=== PATIENT | female | born 1995 | race Caucasian/White ===

== ENCOUNTER 2018-01-04 13:34 | Emergency (ER) | payer OTHER, SELFPAY ==
[2018-01-04 13:36] VITALS: BP 140/93; PULSE 120; RESP 18; TEMP 36.9; O2SAT 98; BMI 33.0
--- NOTE | 2018-01-04 13:50 | ED.ALLEREA ---
HPI - Allergic Reaction General Chief complaint: Allergic Reaction Stated complaint: STUNG BY BEE, ALLERGIC REACTION Time Seen by Provider: 01/04/18 13:50 Source: patient and family (father) Mode of arrival: ambulatory Limitations: no limitations History of Present Illness HPI narrative: This is a a 22-year-old female comes to the emergency department with complaint of itching, hives after having a bee sting about an hour prior to arrival. Patient has not had any shortness of breath or difficulty with breathing. She has not had nausea vomiting or diarrhea. She isn't having any swelling of her lips or oropharynx. She does feel very itchy and does have hives all over. She states she has never had symptoms like this before. Her last the sting was when she was young child. She denies any other past medical or surgical history. She denies any antibiotic allergies. She does not smoke, she drinks occasionally, no illicit. She is accompanied by her father. MD complaint: allergic reaction Related Data Previous Rx's Medication Instructions Recorded epinephrine [EpiPen 2-Harsh] 0.3 mg IM Q10M PRN #2 each 01/04/18 prednisone 50 mg PO DAILY #3 tab 01/04/18 Allergies Allergy/AdvReac Type Severity Reaction Status Date / Time No Known Drug Allergies Allergy Unverified 01/04/18 13:38 Review of Systems Review of Systems All systems reviewed & are unremarkable except as noted in HPI and below Constitutional Denies fatigue ENT Ears, Nose, Mouth, and Throat: Denies change in voice, Denies hoarseness, Denies lip swelling, Denies throat swelling and Denies tongue swelling Cardiovascular Reports rapid heart rate, Denies dyspnea and Denies dyspnea on exertion Respiratory Denies cough, Denies dyspnea, Denies dyspnea on exertion and Denies wheezing Gastrointestinal Gastrointestinal: Denies abdominal pain, Denies change in bowel habits, Denies diarrhea, Denies nausea and Denies vomiting Integumentary/Breasts Reports rash Comments: hives Endocrine Denies fatigue Allergic/Immunologic Denies lip swelling, Denies throat swelling, Denies tongue swelling and Denies wheezing PFSH Social History Smoking Status: Never smoker alcohol intake: current Exam Initial Vital Signs Initial Vital Signs: Vital Signs Temperature 98.5 F 01/04/18 13:36 Pulse Rate 120 H 01/04/18 13:36 Respiratory Rate 18 01/04/18 13:36 Blood Pressure 140/93 H 01/04/18 13:36 Pulse Oximetry 98 01/04/18 13:36 HENIL Head: normocephalic, atraumatic and other (Patient has redness Um and slightly raised hives on the face. No swelling of the lips, oropharynx.) Ears: external ears normal and TM's normal bilaterally Nose: external nose normal and No nasal discharge Face and sinus: sinuses nontender, face symmetric, no sinus tenderness and No dry mucous membranes Mouth: oral mucosae normal and moist mucous membranes Teeth and gingiva: dentition normal Throat: tonsils normal and uvula midline Resp Effort & Inspection: normal respiratory effort, able to speak in complete sentences, no respiratory distress and no use of accessory muscles Auscultation: clear to auscultation bilaterally, no rales, no rhonchi and no wheezes Cardio Rate: regular rate Rhythm: regular rhythm Heart Sounds: no click, no gallops, no murmurs and no rubs Pulses: normal peripheral pulses GI Inspection: non-distended Palpation: soft, no hepatosplenomegaly, No guarding, No pulsatile mass and No tender Auscultation: normal bowel sounds Skin Rashes: rashes noted Neuro General: alert, oriented x3, gait normal and no focal motor deficits Speech: speech normal Course Orders Ordered: Discontinued Medications Diphenhydramine HCl (Benadryl) 50 mg IV NOW ONE Stop: 01/04/18 13:51 Last Admin: 01/04/18 14:07 Dose: 50 mg Famotidine (Pepcid) 20 mg in 50 mls @ 200 mls/hr IV NOW ONE Stop: 01/04/18 14:04 Last Infusion: 01/04/18 14:22 Dose: 0 mls/hr Admin: 01/04/18 14:07 Dose: 200 mls/hr Sodium Chloride (Normal Saline 0.9%) 1,000 mls @ 1,000 mls/hr IV BOLUS ONE Stop: 01/04/18 14:50 Last Infusion: 01/04/18 15:44 Dose: 0 mls/hr Admin: 01/04/18 14:08 Dose: 1,000 mls/hr Methylprednisolone (Solu-Medrol 125 Mg Vial) 125 mg IV NOW ONE Stop: 01/04/18 13:51 Last Admin: 01/04/18 14:08 Dose: 125 mg Reevaluation(s) Reevaluation #1: Recheck after Solu-Medrol and Benadryl as well as fluids patient is feeling much better. She has not received a full L of fluids she still has some hives present but they have improved she is not having any airway involvement, no difficulty with breathing or other issues. Discussed plan for prednisone she can take Benadryl [id number]. We will give her an EpiPen with verbal directions as well as Um prescription so that in case she has another event if she has any sort of other anaphylactic changes she can use the EpiPen. I dad and sister both at bedside and aware of the plan as well. Vital Signs - 8 hr 01/04/18 13:36 01/04/18 14:43 Temperature 98.5 F Pulse Rate 120 H 88 Respiratory Rate 18 Blood Pressure 140/93 H Blood Pressure [Right Arm] 122/85 Pulse Oximetry 98 98 Discharge Plan Departure Patient Disposition: Home Clinical Impression: Allergic reaction, Full body hives Discharge Date/Time: 01/04/18 15:45 Interventions: ED Discharge Assessment Last Done: 01/04/18 15:45 Instructions: DI for General Allergic Reactions Activity Restrictions/Additional Instructions: Return to the emergency department if you have swelling of her lips, mouth, airway, if you feel like you are short of breath or have tightness in her chest. If you are having any recurrence of your hives. You may take 1-2 tablets of Benadryl [id number] every 6-8 hours as needed for itching or hives. Take prednisone until it is completely gone. Carry EpiPen and use this if you're having and anaphylactic allergic reaction or symptoms include swelling of your airway for difficulty breathing after bee sting. Prescriptions: New prednisone 50 mg tablet 50 mg PO DAILY Qty: 3 RF: 0 epinephrine [EpiPen 2-Harsh] 0.3 mg/0.3 mL auto-injector 0.3 mg IM Q10M PRN (Reason: anaphylaxis) Qty: 2 RF: 0
[2018-01-04] MEDS: diphenhydrAMINE 50 MG/ML VIAL IV (14:07)
[2018-01-04] MEDS: FAMOTIDINE 20 MG/50 ML PIGGYBACK 200 MG IV (14:07)
[2018-01-04] MEDS: methylPREDNISolone 125 MG/2 ML VIAL IV (14:08)
[2018-01-04] MEDS: SODIUM CHLORIDE 0.9% 1,000 ML 1000 ML IV (14:08)
[2018-01-04 14:43] VITALS: BP 122/85; PULSE 88; O2SAT 98
== END 2018-01-04 15:45 | disposition home or self-care (01) ==
PROVIDERS: Emergency Provider Emergency Medicine
DX: T63.441A Toxic effect of venom of bees, accidental (unintentional), initial encounter (principal); L50.9 Urticaria, unspecified
CPT/HCPCS: 96361; 96374; 96375; 99283; 99284; J1200; J2930

== ENCOUNTER 2018-01-05 22:22 | Emergency (ER) | payer OTHER, SELFPAY ==
[2018-01-05 22:30] VITALS: BP 157/83; PULSE 112; RESP 15; TEMP 37.1; O2SAT 100
[2018-01-05 22:32] VITALS: BP 150/83; PULSE 112; RESP 15; TEMP 37.1; O2SAT 100; BMI 32.1
--- NOTE | 2018-01-05 22:49 | ED.ALLEREA ---
HPI - Allergic Reaction General Chief complaint: Allergic Reaction Stated complaint: BREAKING OUT IN HIVES Time Seen by Provider: 01/05/18 22:49 Source: patient and old records reviewed Mode of arrival: ambulatory Limitations: no limitations History of Present Illness HPI narrative: Patient is a 22-year-old female who presents with allergic reaction to a bee sting. She was seen evaluated yesterday she had hives all over she now is continuing to have hives and itching in her right inner thigh. No difficulty breathing or shortness of breath. She has been taking prednisone and Benadryl throughout the day but continues to be itching. No fevers or chills they feel like that redness might be getting a little bit worse. Related Data Previous Rx's Medication Instructions Recorded epinephrine [EpiPen 2-Harsh] 0.3 mg IM Q10M PRN #2 each 01/04/18 prednisone 50 mg PO DAILY #3 tab 01/04/18 Allergies Allergy/AdvReac Type Severity Reaction Status Date / Time No Known Drug Allergies Allergy Unverified 01/04/18 13:38 Review of Systems Review of Systems GENERAL: Denies chills,fever HEENT: Denies throat pain RESPIRATORY: Denies dyspnea, cough, wheezing CARDIOVASCULAR: Denies chest pain, palpitations GASTROINTESTINAL: Denies nausea, vomiting MUSCULOSKELETAL: Denies extremity pain, injury SKIN: See HPI NEUROLOGIC: Denies weakness, dizziness, headache, numbness 8 point review of systems is negative except for those stated above and HPI PFSH Social History Smoking Status: Never smoker alcohol intake: current Exam Initial Vital Signs Initial Vital Signs: Vital Signs Temperature 98.7 F 01/05/18 22:30 Pulse Rate 112 H 01/05/18 22:30 Respiratory Rate 15 01/05/18 22:30 Blood Pressure 157/83 H 01/05/18 22:30 Pulse Oximetry 100 01/05/18 22:30 GENERAL: Well-appearing, well-nourished and in no acute distress. HEENT: Head atraumatic,EOMI, pupils reactive, CARDIOVASCULAR: Regular rate and rhythm without murmurs, rubs or gallops. RESPIRATORY: Breath sounds equal bilaterally, no wheezes rales or rhonchi. ABDOMEN: Soft, nontender. Normoactive bowel sounds all 4 quadrants. No guarding or rebound. EXTREMITIES: Normal range of motion, no clubbing or edema. Neurovascularly intact NEUROLOGICAL: Alert and oriented x4.Normal gait and speech. SKIN: Hives noted right inner thigh it is at least 15 cm x 12 cm central clearing no on abscess or swelling is seems to be pretty localized, no stinger identified Course Orders Ordered: Discontinued Medications Ranitidine HCl (Zantac) 150 mg PO NOW ONE Stop: 01/05/18 22:59 Last Admin: 01/05/18 23:09 Dose: 150 mg Vital Signs - 8 hr 01/05/18 22:30 01/05/18 22:32 Temperature 98.7 F 98.7 F Pulse Rate 112 H 112 H Respiratory Rate 15 15 Blood Pressure 150/83 H Blood Pressure [Left Arm] 157/83 H Pulse Oximetry 100 100 MDM - Allergic Reaction MDM Narrative Medical decision making narrative: Already taking prednisone and Benadryl. At this time I see no need for epinephrine emergently or today. Recommend continuing prednisone. Discharge Plan Departure Patient Disposition: Home Clinical Impression: Allergic reaction Discharge Date/Time: 01/05/18 23:12 Interventions: ED Discharge Assessment Last Done: 01/05/18 23:11 Instructions: DI for Insect Bites and Stings Activity Restrictions/Additional Instructions: *You have been diagnosed with a bee sting, allergic reaction *What to do: This does not appear infected time the still seems to be a localized reaction. *Continue to take medications as directed Ranitidine 150 mg twice a day to help with itching Benadryl 25-50 mg every 6 hr if needed for itching *Follow up with your primary care provider in 2-3 days *Return to ER if you should have difficulty breathing, fever, worsening redness or swelling or any new, worsening or concerning symptoms Prescriptions: No Action prednisone 50 mg tablet 50 mg PO DAILY Qty: 3 RF: 0 epinephrine [EpiPen 2-Harsh] 0.3 mg/0.3 mL auto-injector 0.3 mg IM Q10M PRN (Reason: anaphylaxis) Qty: 2 RF: 0 Referrals: [facility] [Provider Group] [facility] [Provider Group] [facility] [Provider Group]
== END 2018-01-05 23:12 | disposition home or self-care (01) ==
PROVIDERS: Emergency Provider Emergency Medicine
DX: T63.441A Toxic effect of venom of bees, accidental (unintentional), initial encounter (principal); L50.9 Urticaria, unspecified
CPT/HCPCS: 99282; 99283

== ENCOUNTER 2020-02-22 16:43 | Emergency (ER) | payer OTHER, SELFPAY ==
[2020-02-22 16:45] VITALS: BP 168/94; PULSE 135; RESP 18; TEMP 37; O2SAT 99; BMI 36.8
[2020-02-22 18:08] LABS: Add Manual Diff / Slide Review NO; Basophils Absolute Auto 0 /uL (0-100); Basophils Percent Auto 0.3 % (0-2); Eosinophils Absolute Auto 100 /uL (0-450); Eosinophils Percent Auto 0.9 % (2-4); Hemoglobin 15.3 g/dL (12.0-16.0); Lymphocytes Absolute Auto 2500 /uL (1100-4500); Lymphocytes Percent Auto 30.6 % (25-40); Mean Corpuscular HGB Conc 34.8 % (30-36); Mean Corpuscular Hemoglobin 30.1 PG (26-34); Mean Corpuscular Volume 86.7 fL (80-100); Monocytes Absolute Auto 600 /uL (0-900); Monocytes Percent Auto 7.4 % (3-14); Neutrophils Absolute Auto 5000 /uL (1500-7000); Neutrophils Percent Auto 60.8 % (50-75); Platelet Count 308 X10^3/uL (150-400); Red Blood Cell Count 5.07 X10^6/uL (4.0-5.2); Red Cell Distribution Width 12.3 % (11.6-14.8); White Blood Cell Count 8.3 X10^3/uL (4.5-11.0)
[2020-02-22 18:17] VITALS: BP 145/82; PULSE 104; RESP 16; O2SAT 97
[2020-02-22 18:19] LABS: BUN Creatinine Ratio 11.1 (6-22); Blood Urea Nitrogen 7 mg/dL (7-17); Calcium 9.3 mg/dL (8.4-10.2); Carbon Dioxide 26 mmol/L (22-32); Chloride 104 mmol/L (98-107); Estimated Glomerular Filt Rate > 60.0 mL/min (>60); Glucose 99 mg/dL (70-100); HEMOLYSIS < 15 (0-50); Potassium 3.7 mmol/L (3.4-5.1); Sodium 138 mmol/L (137-145)
[2020-02-22 18:36] LABS: HCG Quantitative /Beta subunit 5989.5 mIU/mL
--- NOTE | 2020-02-22 18:55 | DI.US.S_ITS ---
PROCEDURE: US OB <= 14 WEEKS FETUS INDICATIONS: CRAMPING OUTSIDE/PRIOR DATING DATA: Last menstrual period (LMP): 01/14/2020. LMP-based estimated date of delivery (RUBEN): 10/20/2020 . First dating scan (date and location): 02/22/2020 . Estimated date of delivery (RUBEN) from first dating scan: 10/19/2020 . TECHNIQUE: Real-time scanning was performed of the fetus and maternal pelvic organs, with image documentation. Endovaginal scanning was also performed to better visualize the fetus and maternal ovaries. COMPARISON: None. FINDINGS: Embryo: An intrauterine anechoic focus is present, containing a 2 mm diameter possible pole measuring 2 mm, corresponding to a 5 week 5 day gestation. No cardiac activity is seen. Measurement variability in dating: +/- 4 weeks by LMP, +/- 7 days by mean sac diameter (use before 6 weeks gestation if crown-rump length not able to be measured), +/- 5 days by crown-rump length (up to 8 weeks 6 days gestation), +/- 7 days by crown-rump length (up to 13 weeks 6 days gestation). Maternal organs: Ovaries demonstrate a probable left ovarian corpus luteal cyst . Limited images through the kidneys demonstrate no hydronephrosis. IMPRESSION: Findings consistent with a in early intrauterine gestation. Clinical and sonographic follow-up is recommended to document viability. Dictated by: Lizzy Moser M.D. on 02/22/2020 at 19:47 Approved by: Lizzy Moser M.D. on 02/22/2020 at 19:48
--- NOTE | 2020-02-22 19:39 | ED.PREGNANCY ---
HPI - General Chief complaint: Abdominal Pain Stated complaint: 5 WKS CRAMPING Time Seen by Provider: 02/22/20 17:35 Source: patient Mode of arrival: Ambulatory Limitations: no limitations History of Present Illness HPI Narrative: 24-year-old female nonsmoker with noncontributory medical history is a at 5 weeks with a chief complaint suprapubic cramping since yesterday. She denies any lateralization to her complaint. She denies vaginal bleeding. She denies dysuria, frequency or urgency. She has had no fever or shaking chills. MD Complaint: abdominal pain Onset (ago): day(s) Pain Consistency: constant Location: pelvis Severity: moderate Quality: Cramping Radiation: pelvis Relieving factors: none Exacerbating factors: none Associated symptoms: denies other symptoms Vaginal discharge: none Vaginal bleeding: none Patient : Yes Related Data Previous Rx's Medication Instructions Recorded epinephrine [EpiPen 2-Harsh] 0.3 mg IM Q10M PRN #2 each 01/04/18 Allergies Allergy/AdvReac Type Severity Reaction Status Date / Time No Known Drug Allergies Allergy Verified 11/22/19 10:01 Review of Systems Constitutional Constitutional: Denies chills, Denies fatigue, Denies fever(s), Denies frequent falls, Denies lethargy and Denies weakness Eyes Eyes: Denies change in vision, Denies eye discharge, Denies irritation and Denies loss of vision ENT Ears, Nose, Mouth, and Throat: Denies change in voice, Denies dizziness, Denies neck pain, Denies sore throat and Denies throat swelling Cardiovascular Cardiovascular: Denies chest pain, Denies irregular heart rhythm, Denies lightheadedness, Denies palpitations, Denies dyspnea, Denies dyspnea on exertion and Denies orthopnea Respiratory Respiratory: Denies cough, Denies dyspnea, Denies dyspnea on exertion and Denies wheezing Gastrointestinal Gastrointestinal: Denies abdominal pain, Denies change in bowel habits, Denies diarrhea, Denies nausea and Denies vomiting Musculoskeletal Musculoskeletal: Denies neck pain and Denies numbness Integumentary/Breasts Skin/Breast: Denies pruritus, Denies erythema, Denies rash and Denies wounds Neurologic Neurologic: Denies behavioral changes, Denies confusion, Denies dizziness, Denies frequent falls, Denies loss of vision, Denies numbness and Denies weakness Psychiatric Psychiatric: Denies anxiety, Denies behavioral changes, Denies confusion, Denies depression, Denies homicidal ideation and Denies suicidal ideation Endocrine Endocrine: Denies fatigue, Denies flushing and Denies palpitations Hematologic/Lymphatic Hematologic/Lymphatic: Denies easy bruising Allergic/Immunologic Allergic/Immunologic: Denies urticaria, Denies throat swelling and Denies wheezing PMFSH - Past Medical History Patient : Yes Exam Narrative Exam Narrative: GENERAL: [24] year old patient appears stated age. Well-nourished, well-developed patient, in mild distress. Tearful HEAD: Atraumatic. Normocephalic. EYES: Pupils equal round and reactive. Extraocular motions intact. No scleral icterus. No injection or drainage. ENT: Nose without bleeding, purulent drainage. Throat without erythema, tonsillar hypertrophy or exudate. Airway patent. NECK: Trachea midline. Non tender CARDIOVASCULAR: Regular rate and rhythm without murmurs, gallops, or rubs. RESPIRATORY: Clear to auscultation. Breath sounds equal bilaterally. No wheezes, rales, or rhonchi. GASTROINTESTINAL: Abdomen soft, non-tender, nondistended. EXTREMITIES: No edema or joint tenderness. BACK: Nontender without deformity or crepitance. No flank tenderness. NEURO: AOx3. SKIN: No rash or erythema of visible areas Initial Vital Signs Initial Vital Signs: Vital Signs Temperature 98.6 F 02/22/20 16:45 Pulse Rate 135 H 02/22/20 16:45 Respiratory Rate 18 02/22/20 16:45 Blood Pressure 168/94 H 02/22/20 16:45 Pulse Oximetry 99 02/22/20 16:45 Course Orders Ordered: ED Orders 02/22/20 18:02 ABO RH Type Stat Basic Metabolic Panel Stat Complete Blood Count AUTO DIFF Stat HCG Quantitative /Beta subunit Stat 02/22/20 18:55 US OB <= 14 weeks fetus Stat Vital Signs Vital signs: Vital Signs - 8 hr 02/22/20 16:45 02/22/20 18:17 Temperature 98.6 F Pulse Rate 135 H 104 H Respiratory Rate 18 16 Blood Pressure 168/94 H 145/82 H Pulse Oximetry 99 97 MDM - OB/Uterine Contractions Lab Data Result diagrams: 02/22/20 18:02 02/22/20 18:02 Labs: Lab Results 02/22/20 02/22/20 02/22/20 Range/Units 18:02 18:02 18:02 WBC 8.3 (4.5-11.0) X10^3/uL RBC 5.07 (4.0-5.2) X10^6/uL Hgb 15.3 (12.0-16.0) g/dL Hct 44.0 (36-46) % MCV 86.7 (80-100) fL MCH 30.1 (26-34) PG MCHC 34.8 (30-36) % RDW 12.3 (11.6-14.8) % Plt Count 308 (150-400) X10^3/uL Neut % (Auto) 60.8 (50-75) % Lymph % (Auto) 30.6 (25-40) % Bryan % (Auto) 7.4 (3-14) % Eos % (Auto) 0.9 L (2-4) % Baso % (Auto) 0.3 (0-2) % Neut # (Auto) 5000 (0300-4932) /uL Lymph # (Auto) 2500 (4765-0435) /uL Bryan # (Auto) 600 (0-900) /uL Eos # (Auto) 100 (0-450) /uL Baso # (Auto) 0 (0-100) /uL Sodium 138 (137-145) mmol/L Potassium 3.7 (3.4-5.1) mmol/L Chloride 104 (98-107) mmol/L Carbon Dioxide 26 (22-32) mmol/L BUN 7 (7-17) mg/dL Creatinine 0.63 (0.52-1.04) mg/dL Estimated GFR > 60.0 (>60) mL/min BUN/Creatinine Ratio 11.1 (6-22) Glucose 99 (70-100) mg/dL Calcium 9.3 (8.4-10.2) mg/dL HCG, Quant 5989.5 mIU/mL Blood Type O Positive Urine Dip Bedside Urine Glucose Negative Bedside Urine Bilirubin - Negative Bedside Urine Ketone - Negative Urine Specific [place] 1.025 Bedside Urine Occult Blood - Negative Bedside Urine pH 6 Bedside Urine Protein - Negative Bedside Urine Urobilinogen - Negative Bedside Urine Nitrite - Negative Bedside Urine Leukocytes - Negative Esterase Imaging Data US - OB: Radiologist's Impression: Chart Viewer Diagnostics DATE TYPE STATUS REF RANGE/AUTHOR Hx 02/22/20 18:55 Lizzy Moser Sherry Chung 24, F0 1995 [facility], [facility] ED 154.94cm 88.451kg BMI: 36.8kg/m? Abdominal Pain Search Chart No Data to Display ONSET 05/16/12 02/22/20 19:40 Sherry Chung 24 F 1995 [place] [address] Ultrasound Report Signed Patient: Sherry Chung LMR#: [id number] : 1995Acct:[id number] Age/Sex: 24 / FDate of Service: 02/22/20 Loc: ED Accession Number: [id number] Procedure: US OB <= 14 weeks fetus Ordering Provider: Uday Soto D.O. PROCEDURE: US OB <= 14 WEEKS FETUS INDICATIONS: CRAMPING OUTSIDE/PRIOR DATING DATA: Last menstrual period (LMP): 01/14/2020. LMP-based estimated date of delivery (RUBEN): 10/20/2020 . First dating scan (date and location): 02/22/2020 . Estimated date of delivery (RUBEN) from first dating scan: 10/19/2020 . TECHNIQUE: Real-time scanning was performed of the fetus and maternal pelvic organs, with image documentation. Endovaginal scanning was also performed to better visualize the fetus and maternal ovaries. COMPARISON: None. FINDINGS: Embryo: An intrauterine anechoic focus is present, containing a 2 mm diameter possible pole measuring 2 mm, corresponding to a 5 week 5 day gestation. No cardiac activity is seen. Measurement variability in dating: +/- 4 weeks by LMP, +/- 7 days by mean sac diameter (use before 6 weeks gestation if crown-rump length not able to be measured), +/- 5 days by crown-rump length (up to 8 weeks 6 days gestation), +/- 7 days by crown-rump length (up to 13 weeks 6 days gestation). Maternal organs: Ovaries demonstrate a probable left ovarian corpus luteal cyst . Limited images through the kidneys demonstrate no hydronephrosis. IMPRESSION: Findings consistent with a in early intrauterine gestation. Clinical and sonographic follow-up is recommended to document viability. Dictated by: Lizzy Moser M.D. on 02/22/2020 at 19:47 Approved by: Lizzy Moser M.D. on 02/22/2020 at 19:48 [facility] Narrative Medical decision making narrative: Multiple etiologies for patient's symptoms considered including: [Nonspecific pain in , implantation, ectopic, early miscarriage] Patient's symptoms improved over duration of stay with above-stated therapies. Findings and discharge diagnosis discussed with patient/family followed by verbalization of understanding Return precautions discussed with patient/family whom verbalize understanding. Discharge Plan Departure Patient Disposition: Home Clinical Impression: Pelvic pain affecting Qualifiers: Trimester: first trimester Qualified Code(s): O26.891 - Other specified related conditions, first trimester Discharge Date/Time: 02/22/20 19:41 Instructions: DI for Abdominal Pain -- Early Activity Restrictions/Additional Instructions: *You have been diagnosed with [pelvic cramping in early . Ultrasound suggests no ectopic , this is very reassuring] *What to do: *Follow up with your primary care provider in 2-3 days, call for an appointment. Let them know you were seen in the Emergency Department and that we ask that you be seen in follow up *Return to ER if you should have any new, worsening or concerning symptoms, such as [increasing pain, vaginal bleeding, fever greater than 101 or other concerning symptoms] Prescriptions: No Action epinephrine [EpiPen 2-Harsh] 0.3 mg/0.3 mL auto-injector 0.3 mg IM Q10M PRN (Reason: anaphylaxis) Qty: 2 RF: 0 Referrals: Rikki Fernández MD [Primary Care Provider] - Katherin Hoskins MD [Physician] -
[2020-02-22 19:40] VITALS: BP 142/94; PULSE 114; RESP 18; O2SAT 98
== END 2020-02-22 19:41 | disposition home or self-care (01) ==
PROVIDERS: Emergency Provider Emergency Medicine; PCP Student in an Organized Health Care Education/Training Program
DX: O26.891 Other specified pregnancy related conditions, first trimester (principal); R10.9 Unspecified abdominal pain; Z3A.01 Less than 8 weeks gestation of pregnancy
CPT/HCPCS: 36415; 76801; 76817; 80048; 81003; 84702; 85025; 86900; 86901; 99282; 99284

== ENCOUNTER → 2020-03-06 10:40 | Outpatient (CLI) | payer OTHER, SELFPAY ==
--- NOTE | 2020-03-06 | DI.US.S_ITS ---
PROCEDURE: US OB <= 14 WEEKS FETUS INDICATIONS: INITIAL SIZING AND DATING OUTSIDE/PRIOR DATING DATA: Last menstrual period (LMP): 01/14/20 . LMP-based estimated date of delivery (RUBEN): 10/20/20 . First dating scan (date and location): 02/22/20 . Estimated date of delivery (RUBEN) from first dating scan: 10/19/20 . TECHNIQUE: Real-time scanning was performed of the fetus and maternal pelvic organs, with image documentation. Endovaginal scanning was also performed to better visualize the fetus and maternal ovaries. COMPARISON: [facility], OB <= 14 WEEKS FETUS, 02/22/2020, 19:15. FINDINGS: Embryo: An intrauterine is present including a single pole with an average crown-rump length of 1.2 cm corresponding to a seven week three day plus or minus five day gestation. There is detectable cardiac activity in the fetus at a rate of 168 beats per minute. A normal yolk sac is present. Measurement variability in dating: +/- 4 weeks by LMP, +/- 7 days by mean sac diameter (use before 6 weeks gestation if crown-rump length not able to be measured), +/- 5 days by crown-rump length (up to 8 weeks 6 days gestation), +/- 7 days by crown-rump length (up to 13 weeks 6 days gestation). Maternal organs: The gravid uterus is anteverted. The cervix is closed. There is no perigestational hemorrhage. Maternal ovaries appear normal with a corpus luteum associated with the left ovary. Limited images through the kidneys demonstrate no hydronephrosis. IMPRESSION: 1. Single living intrauterine . 2. Estimated due date of 10/19/20. Dictated by: Maritza Reynolds M.D. on 03/06/2020 at 13:12 Approved by: Maritza Reynolds M.D. on 03/06/2020 at 13:17
== END ==
PROVIDERS: PCP Family Medicine; Referring Provider Family Medicine; Visit Provider Family Medicine
DX: Z34.91 Encounter for supervision of normal pregnancy, unspecified, first trimester (principal); Z3A.01 Less than 8 weeks gestation of pregnancy
CPT/HCPCS: 76801; 76830

== ENCOUNTER → 2020-05-05 12:17 | Outpatient (ROUT) | payer OTHER, SELFPAY ==
[2020-05-05 12:29] LABS: Glucose 143 mg/dL (70-100)
== END ==
PROVIDERS: PCP Family Medicine; Visit Provider Nurse Practitioner Obstetrics & Gynecology
DX: Z34.90 Encounter for supervision of normal pregnancy, unspecified, unspecified trimester (principal); Z13.1 Encounter for screening for diabetes mellitus; Z3A.16 16 weeks gestation of pregnancy
CPT/HCPCS: 82947

== ENCOUNTER → 2020-05-08 07:44 | Outpatient (CLI) | payer OTHER, MEDICAID, SELFPAY ==
[2020-05-08 08:30] LABS: Glucose Fasting Gestational 95 mg/dL (76-95)
[2020-05-08 09:56] LABS: Glucose 1 Hour Gest 160 mg/dL (76-180)
[2020-05-08 11:04] LABS: Glucose 2 Hour Gest 143 mg/dL (76-155)
[2020-05-08 11:06] LABS: Glucose Tol Interp,Gestational INTERPRETATION
[2020-05-08 12:21] LABS: Glucose 3 Hour Gest 119 mg/dL (76-140)
== END ==
PROVIDERS: PCP Family Medicine; Referring Provider Nurse Practitioner Obstetrics & Gynecology; Visit Provider Nurse Practitioner Obstetrics & Gynecology
DX: Z34.90 Encounter for supervision of normal pregnancy, unspecified, unspecified trimester (principal); Z13.1 Encounter for screening for diabetes mellitus; Z3A.16 16 weeks gestation of pregnancy
CPT/HCPCS: 36415; 82951; 82952

== ENCOUNTER → 2020-06-02 09:42 | Outpatient (CLI) | payer OTHER, MEDICAID, SELFPAY ==
--- NOTE | 2020-06-02 09:45 | DI.US.S_ITS ---
PROCEDURE: US OB >= 14 WEEKS FETUS INDICATIONS: 20 WEEK ANATOMICAL SURVEY OUTSIDE/PRIOR DATING DATA: Last menstrual period (LMP): 01/14/2020. LMP-based estimated date of delivery (RUBEN): 10/20/2020 . First dating scan (date and location): 02/22/2020 . Estimated date of delivery (RUBEN) from first dating scan: 10/29/2020 . TECHNIQUE: Real-time scanning was performed of the fetus, with image documentation and biometric measurements. Endovaginal scanning: No COMPARISON: None. FINDINGS: General: A single living intrauterine gestation is present. Presentation: Breech. Placenta: Placental position is posterior , without previa. Amniotic fluid index: 11.9 cm, normal range is 5-24 cm. heart rate: 158 beats per minute. Maternal cervical canal: 4.0 cm long. Normal lower limit is 2.5 cm. biometrics: Biparietal diameter: 19 weeks 3 days Head circumference: 20 weeks 1 day Abdominal circumference: 20 weeks 0 days Femur length: 20 weeks 0 days Estimated gestational age from initial scan: 20 weeks 1 day Composite gestational age from present scan: 19 weeks 6 days Estimated weight and percentile: 323 g, 35th percentile Measurement variability for biometric dating: +/- 7 days from 14 weeks to 15 weeks 6 days gestation, +/- 10 days from 16 weeks to 21 weeks 6 days gestation, +/- 2 weeks from 22 weeks to 27 weeks 6 days gestation, +/- 3 weeks for 28 weeks gestation or later. weight reference: 4500 g or EFW >90/95% is considered macrosomia or large for gestational age. EFW <10% is small for gestational age. EFW 5% or less is considered intra-uterine growth restriction. Anatomic survey: Neuro: Ventricles are non-dilated at less than 10 mm. Cisterna magna is normal at 3-11 mm. Cerebellum is normal in size and morphology. Nuchal skin fold: Normal at less than 6 mm between 14-21 weeks gestational age. Face: Suboptimally visualized. Spine: No evidence for spina bifida. Heart: 4-chambered heart is present, with normal ventricular outflow tracts. Diaphragm: Diaphragm is intact. Stomach: Left-sided stomach is present. Kidneys: No hydronephrosis. Normal is less than 5 mm in 2nd trimester, less than 7 mm in 3rd trimester. Cord: 3-vessel cord has orthotopic insertion. Bladder: Normal in size. Extremities: All 4 extremities identified. IMPRESSION: 1. Single living IUP redemonstrated and interval growth is normal. 2. face suboptimally visualized; otherwise normal anatomic survey. Dictated by: Christophe Pitts [facility] Interpreted: Shane Romero MD on 06/04/2020 at 15:02 Approved by: Shane Romero M.D. on 06/04/2020 at 17:35
== END ==
PROVIDERS: PCP Nurse Practitioner Obstetrics & Gynecology; Referring Provider Nurse Practitioner Obstetrics & Gynecology; Visit Provider Nurse Practitioner Obstetrics & Gynecology
DX: Z34.92 Encounter for supervision of normal pregnancy, unspecified, second trimester (principal); Z3A.20 20 weeks gestation of pregnancy
CPT/HCPCS: 76811

== ENCOUNTER → 2020-06-18 14:55 | Outpatient (CLI) | payer OTHER, MEDICAID, SELFPAY ==
--- NOTE | 2020-06-18 15:53 | DIET.PN ---
INITIAL GESTATIONAL DIABETES ASSESSMENT ASSESS:? Ms. Chung is a 25 yof referred for gestational diabetes. Pt is . She has been monitoring her blood glucose for the last month. At this time, more than 20% of her blood glucose is above recommended values. She follows a diet high in carbohydrate rich foods. She admits to be a night owl and often skipping breakfast. She lost weight during her first trimester due to food intolerances but has started gaining some weight back. ? RUBEN:?October 19, 2020 ? WKS GESTATION:?? 22 wks ?LABS: FB F: 95 1hr: 160 2hr: 143 3hr: 119 ? MEDS: n/a ? DIET:? B: bagel w/ cream cheese and fruit, Shiela energy (160mg caffeine) L: premier protein shake w/ fruit D: tacos; spaghetti; teriyaki chicken bowls Sn: fruit/ sweets ? HT:? 61in ? PRE-PREG WT:? 195lb ? PRE-PREG BMI:??? 36.8 ? CURRENT WT: 184lb ? TOTAL WT GAIN:? -11lb EXERCISE: none NUTRITION DX 1. Altered nutrition related lab values r/t gestational diabetes as evidenced by recent labs (OGGT). INTERVENTION 1. Discussed pathophysiology of gestational diabetes and impact of hormone and nutrition/diet on blood sugar control.? Discussed fed versus non-fed state.? 2. Recommended checking fasting, pre-meal and 1hr post prandial (3x/day).? Discussed goals for glycemic control (<95 FBG, <140 1-hr PP).? 3. Discussed the effect of carbohydrates/protein/fat on blood sugar control.? Stressed importance of consistent carbohydrate intake at each meal and provided instructions for recommended servings/portions of carbohydrates/protein per meal.? Provided pt with educational material. 4. Introduced carbohydrate counting and measuring carbohydrate content via servings sizes and reading nutrition labels.? Provided handouts.? Pt will need further review 5. Discussed importance of meal timing and not going >3 hours between meals.? Provided sample meal schedule for pt.? Pt agreeable.?? 6. Discussed importance a pre-danitza vitamin and including food sources of calcium, vitamin D, iron and folic acid for baby and mother?s nutrition support. 7. Discussed caffeine intake. Recommend no more than 200 mg/day (1 cup coffee). 8. Discussed rule of 15 for hypoglycemia. 9. Recommend patient purchase Urine Ketone strips and instructed on use and when to contact provider. 10. Recommended patient continue exercise as appropriate per PCP approval. Discussed 30 min /day 11. Patient may need medication management, will follow-up with plan of care at next visit after reviewing glucose results.? MONITOR/EVAL: Follow up scheduled X 1 week. Good compliance expected. Review: carb sources, carb counting, portion size, meal timing, BG log, weight.
== END ==
PROVIDERS: PCP Nurse Practitioner Obstetrics & Gynecology; Referring Provider Nurse Practitioner Obstetrics & Gynecology; Visit Provider Nurse Practitioner Obstetrics & Gynecology
DX: O24.419 Gestational diabetes mellitus in pregnancy, unspecified control (principal)
CPT/HCPCS: G0108

== ENCOUNTER → 2020-06-25 15:10 | Outpatient (CLI) | payer OTHER, MEDICAID, SELFPAY ==
--- NOTE | 2020-06-25 15:29 | DIET.PN ---
Gestational Diabetes Follow Up ? ASSESS:? Ms. Chung is here for gestational diabetes follow up. She has completely eliminated sugar and has cut down on carbohydrate portions. She has been focusing on adding more protein to meals and snacks. Glucose values have been in good control since our last visit. She continues to lose weight. Not concerned at this time as weight loss is intentional due to dietary changes and baby is growing appropriately. ? LABS: FB-93 (106 x 1) 1 hr PP:??86-118 ? Weight: 181 lb ? EXERCISE:??plans to start walking now that the weather is getting nicer. ? NUTRITION Dx? 1. Altered nutrition related labs r/t gestational diabetes aeb recent labs (OGGT). ? INTERVENTION? 1. Reviewed blood sugar log and implications/reasons for elevated/decreased blood sugar.? Pt with good understanding.? 2. Reviewed carbohydrate counting and importance of consistent carbohydrate intake.? 3. Reviewed meal intake and importance of balanced meals. 4. Discussed evening snacks ideas. Recommended avoiding milk and fruit after dinner to help with elevated FBG. 5. Recommended pt avoid processed foods as much as possible and aim to get most nutrients from refrigerated options. Suggested cutting up vegetables and making protein rich salads (chicken/egg salad) ahead of time for quick snacks. 6. Discussed possible need for increased medication management if >80% of fasting and post-prandial readings are not within recommended values (FBG<95, 1 hr PP <140). Pt agreeable. ? MONITOR/EVALUATE: Pt receptive to information provided.? Will schedule follow up in 4 weeks. Patient will call sooner if blood glucose is not in range.
== END ==
PROVIDERS: Referring Provider Nurse Practitioner Obstetrics & Gynecology; Visit Provider Nurse Practitioner Obstetrics & Gynecology
DX: O24.419 Gestational diabetes mellitus in pregnancy, unspecified control (principal)
CPT/HCPCS: G0108

== ENCOUNTER 2020-08-14 23:08 | Emergency (ER) | payer OTHER, MEDICAID, SELFPAY ==
[2020-08-14 23:15] VITALS: BP 132/93; PULSE 130; RESP 20; TEMP 37.4; O2SAT 97
[2020-08-14 23:47] VITALS: PULSE 108
--- NOTE | 2020-08-14 23:53 | ED_ITS ---
HPI - Nausea/Vomiting/Diarrhea General Chief complaint: Nausea/Vomiting/Diarrhea Stated complaint: flu like symptons, nausea bloody diarrhea Time Seen by Provider: 08/14/20 23:24 Source: patient Mode of arrival: Ambulatory Limitations: no limitations History of Present Illness HPI Narrative: Patient is a 25-year-old female who is currently 30 weeks presenting with diarrhea 3 times today and some nausea. Fever chills or sore throat. His she is noted to be quite tachycardic with heart rate in the 130s initially for has come down she states that she does have higher than normal heart rate during but I do not have documentation of how high. She overall does not feel great. She noted she had blood streaking in her diarrhea but not filling the toilet with blood MD complaint: nausea and diarrhea Related Data Home Medications Medication Instructions Recorded Confirmed metformin 500 mg tablet 500 mg PO DAILY 07/08/20 07/08/20 prenat.vits,lyric,[id number] 1 tab PO DAILY 07/08/20 07/08/20 sertraline 50 mg tablet 50 mg PO DAILY 07/08/20 07/08/20 Previous Rx's Medication Instructions Recorded epinephrine [EpiPen 2-Harsh] 0.3 mg IM Q10M PRN #2 each 01/04/18 Allergies Allergy/AdvReac Type Severity Reaction Status Date / Time bee venom protein (honey bee) Allergy Severe throat Verified 07/08/20 11:25 swelling, hives Review of Systems Review of Systems Narrative: GENERAL: Denies chills, fatigue, malaise, fever, sweats, travel HEENT: Denies sinus pain, ear pain, sore throat, difficulty swallowing, neck nicki n RESPIRATORY: Denies dyspnea, cough, wheezing, hemoptysis, sputum. CARDIOVASCULAR: Denies chest pain, palpitations, orthopnea, edema GASTROINTESTINAL: See HPI : Denies dysuria, frequency, incontinence, hematuria, urinary retention, flank pain. MUSCULOSKELETAL: Denies weakness, joint pain, or bony pain SKIN: No rash, no erythema, no pruritus NEUROLOGIC: Denies weakness, dizziness, headache, numbness, change in speech, confusion PSYCHIATRIC: No concerning psychosocial issues. 12 point review of systems is negative except for those stated above and HPI Patient History Medical History Acne rosacea, papular type (05/16/12) Anxiety Herniated disc (~2017) HSV-2 infection Surgical History History of placement of ear tubes (~1996) Family History Grandmother Diabetes mellitus Mother Bicornate uterus Social History Smoking Status: Never smoker alcohol intake: current Smoking Status: Never smoker alcohol intake frequency: 0-2 drinks per day Substance Use Type: does not use Exam Initial Vital Signs Initial Vital Signs: Vital Signs Temperature 99.3 F 08/14/20 23:15 Pulse Rate 130 H 08/14/20 23:15 Respiratory Rate 20 08/14/20 23:15 Blood Pressure 132/93 H 08/14/20 23:15 Pulse Oximetry 97 08/14/20 23:15 GENERAL: Well-appearing, well-nourished and in no acute distress. HEENT: Head atraumatic,EOMI, pupils reactive, face symmetric CARDIOVASCULAR: Regular rate and rhythm without murmurs, rubs or gallops. RESPIRATORY: Breath sounds equal bilaterally, no wheezes rales or rhonchi. ABDOMEN: Soft, gravid nontender EXTREMITIES: Normal range of motion, no clubbing or edema. Neurovascularly intact NEUROLOGICAL: Alert and oriented x4.Normal gait and speech. Cranial nerves II through XII grossly intact. SKIN: Warm, dry, no laceration, no petechiae, no rashes or lesions. Course Orders Ordered: ED Orders 08/14/20 23:15 COVID19 - ADMIT (HOSPITAL ACCOUNT MANAGER swab/PCR) Stat Influenza A & B (PCR) Stat 08/14/20 23:59 Complete Blood Count AUTO DIFF Stat Comprehensive Metabolic Panel Stat Lipase Stat Discontinued Medications Sodium Chloride (Normal Saline 0.9%) 1,000 mls @ 1,000 mls/hr IV BOLUS ONE Stop: 08/15/20 00:49 Last Admin: 08/15/20 00:15 Dose: 1,000 mls/hr Documented by: DARLING Vital Signs Vital signs: Vital Signs - 8 hr 08/14/20 23:15 08/14/20 23:47 04/30/21 00:25 Temperature 99.3 F Pulse Rate 130 H 108 H 93 H Respiratory Rate 20 17 Blood Pressure 132/93 H Pulse Oximetry 97 99 MDM - Nausea/Vomiting/Diarrhea Lab Data Attestation: I reviewed the patient's lab results. Result diagrams: 08/14/20 23:59 08/14/20 23:59 Labs: Lab Results 08/14/20 08/14/20 08/14/20 Range/Units 23:15 23:15 23:59 WBC 9.0 (4.5-11.0) X10^3/uL RBC 4.19 (4.0-5.2) X10^6/uL Hgb 12.4 (12.0-16.0) g/dL Hct 36.1 (36-46) % MCV 86.4 (80-100) fL MCH 29.6 (26-34) PG MCHC 34.3 (30-36) % RDW 12.3 (11.6-14.8) % Plt Count 179 (150-400) X10^3/uL Neut % (Auto) 75.3 H (50-75) % Lymph % (Auto) 13.8 L (25-40) % [place] % (Auto) 10.1 (3-14) % Eos % (Auto) 0.2 L (2-4) % Baso % (Auto) 0.6 (0-2) % Neut # (Auto) 6800 (4727-6125) /uL Lymph # (Auto) 1300 (5995-3804) /uL [place] # (Auto) 900 (0-900) /uL Eos # (Auto) 0 (0-450) /uL Baso # (Auto) 100 (0-100) /uL Sodium (137-145) mmol/L Potassium (3.4-5.1) mmol/L Chloride (98-107) mmol/L Carbon Dioxide (22-32) mmol/L BUN (7-17) mg/dL Creatinine (0.52-1.04) mg/dL Estimated GFR (>60) mL/min BUN/Creatinine Ratio (6-22) Glucose (70-100) mg/dL Calcium (8.4-10.2) mg/dL Total Bilirubin (0.2-1.3) mg/dL AST (14-36) IU/L ALT (<35) IU/L Alkaline Phosphatase (38-126) U/L Total Protein (6.3-8.2) g/dL Albumin (3.5-5.0) g/dL Globulin (1.7-4.1) g/dL Albumin/Globulin Ratio (1.0-2.8) Lipase (23-300) U/L SARS-CoV-2 (PCR) Negative (Negative) Influenza A (RT-PCR) Flu a negative (NEGATIVE) Influenza B (RT-PCR) Flu b negative (NEGATIVE) 08/14/20 Range/Units 23:59 WBC (4.5-11.0) X10^3/uL RBC (4.0-5.2) X10^6/uL Hgb (12.0-16.0) g/dL Hct (36-46) % MCV (80-100) fL MCH (26-34) PG MCHC (30-36) % RDW (11.6-14.8) % Plt Count (150-400) X10^3/uL Neut % (Auto) (50-75) % Lymph % (Auto) (25-40) % [place] % (Auto) (3-14) % Eos % (Auto) (2-4) % Baso % (Auto) (0-2) % Neut # (Auto) (7116-7034) /uL Lymph # (Auto) (4098-6777) /uL [place] # (Auto) (0-900) /uL Eos # (Auto) (0-450) /uL Baso # (Auto) (0-100) /uL Sodium 133 L (137-145) mmol/L Potassium 3.4 (3.4-5.1) mmol/L Chloride 106 (98-107) mmol/L Carbon Dioxide 21 L (22-32) mmol/L BUN 5 L (7-17) mg/dL Creatinine 0.45 L (0.52-1.04) mg/dL Estimated GFR > 60.0 (>60) mL/min BUN/Creatinine Ratio 11.1 (6-22) Glucose 123 H (70-100) mg/dL Calcium 8.5 (8.4-10.2) mg/dL Total Bilirubin 0.3 (0.2-1.3) mg/dL AST 19 (14-36) IU/L ALT 13 (<35) IU/L Alkaline Phosphatase 88 (38-126) U/L Total Protein 6.2 L (6.3-8.2) g/dL Albumin 3.2 L (3.5-5.0) g/dL Globulin 3.0 (1.7-4.1) g/dL Albumin/Globulin Ratio 1.1 (1.0-2.8) Lipase 66 (23-300) U/L SARS-CoV-2 (PCR) (Negative) Influenza A (RT-PCR) (NEGATIVE) Influenza B (RT-PCR) (NEGATIVE) Urine Dip Bedside Urine Glucose Negative Bedside Urine Ketone - Negative Bedside Urine Occult Blood - Negative Bedside Urine Protein - Negative Bedside Urine Urobilinogen - Negative Bedside Urine Nitrite - Negative Bedside Urine Leukocytes - Negative Esterase MDM Narrative Medical decision making narrative: Patient's heart rate improved significantly with 1 L of IV fluid urine is negative. heart tones done by myself and are 150-152. At this time she has home anti nausea medication does need any more. Discussed oral rehydration technique and when to return to the ED. Discharge Plan Departure Patient Disposition: Home Clinical Impression: Gastroenteritis Instructions: DI for Viral Gastroenteritis -- Adult Activity Restrictions/Additional Instructions: 1) You have been diagnosed with viral gastroenteritis 2) What to do: Drink frequent but small amounts of fluids. I recommend Gatorade or a Gatorade-like product, as it has small amounts of sugar and salts that improve fluid retention. 3) Take medications as directed 4) Follow up with your primary care provider in 2-3 days, follow-up with OB as needed 5) Return to ER if you should have any new or worsening symptoms such as, unable to hold down fluids despite use of anti-nausea medications and the small volume oral rehydration strategy. Prescriptions: No Action metformin 500 mg tablet 500 mg PO DAILY RF: 0 sertraline 50 mg tablet 50 mg PO DAILY RF: 0 prenat.vits,lyric,[id number] Tablet 1 tab PO DAILY RF: 0 epinephrine [EpiPen 2-Harsh] 0.3 mg/0.3 mL auto-injector 0.3 mg IM Q10M PRN (Reason: anaphylaxis) Qty: 2 RF: 0 Referrals: Miscellaneous,Doctor, MD [Primary Care Provider] -
[2020-08-15 00:02] LABS: COVID19 - ADMIT (NP swab/PCR) Negative (Negative)
[2020-08-15 00:03] LABS: Influenza A - CEPHEID Flu A NEGATIVE (NEGATIVE); Influenza B - CEPHEID Flu B NEGATIVE (NEGATIVE)
[2020-08-15 00:12] LABS: Add Manual Diff / Slide Review NO; Basophils Absolute Auto 100 /uL (0-100); Basophils Percent Auto 0.6 % (0-2); Eosinophils Absolute Auto 0 /uL (0-450); Eosinophils Percent Auto 0.2 % (2-4); Hematocrit 36.1 % (36-46); Hemoglobin 12.4 g/dL (12.0-16.0); Lymphocytes Absolute Auto 1300 /uL (1100-4500); Lymphocytes Percent Auto 13.8 % (25-40); Mean Corpuscular HGB Conc 34.3 % (30-36); Mean Corpuscular Hemoglobin 29.6 PG (26-34); Mean Corpuscular Volume 86.4 fL (80-100); Monocytes Absolute Auto 900 /uL (0-900); Monocytes Percent Auto 10.1 % (3-14); Neutrophils Absolute Auto 6800 /uL (1500-7000); Neutrophils Percent Auto 75.3 % (50-75); Platelet Count 179 X10^3/uL (150-400); Red Blood Cell Count 4.19 X10^6/uL (4.0-5.2); Red Cell Distribution Width 12.3 % (11.6-14.8)
[2020-08-15] MEDS: SODIUM CHLORIDE 0.9% 1,000 ML 1000 ML IV (00:15)
[2020-08-15 00:22] LABS: Alanine Aminotransferase 13 IU/L (<35); Albumin 3.2 g/dL (3.5-5.0); Albumin Globulin Ratio 1.1 (1.0-2.8); Alkaline Phosphatase 88 U/L (38-126); Aspartate Aminotransferase 19 IU/L (14-36); BUN Creatinine Ratio 11.1 (6-22); Bilirubin Total 0.3 mg/dL (0.2-1.3); Blood Urea Nitrogen 5 mg/dL (7-17); Calcium 8.5 mg/dL (8.4-10.2); Carbon Dioxide 21 mmol/L (22-32); Chloride 106 mmol/L (98-107); Estimated Glomerular Filt Rate > 60.0 mL/min (>60); Glucose 123 mg/dL (70-100); HEMOLYSIS < 15 (0-50); Lipase 66 U/L (23-300); Potassium 3.4 mmol/L (3.4-5.1); Sodium 133 mmol/L (137-145); Total Protein 6.2 g/dL (6.3-8.2)
[2020-08-15 00:24] VITALS: PULSE 96; O2SAT 95
[2020-08-15 00:25] VITALS: PULSE 93; RESP 17; O2SAT 99
[2020-08-15 00:30] VITALS: PULSE 93; O2SAT 95
[2020-08-15 01:00] VITALS: O2SAT 99
[2020-08-15 01:32] VITALS: O2SAT 97
[2020-08-15 01:33] VITALS: BP 110/71; PULSE 99; O2SAT 97
--- NOTE | 2020-09-26 15:51 | PC.NURSE ---
Late ENtry: RN CESAR'd IV fluids at 0130 prior to discharge.
== END 2020-08-15 01:42 | disposition home or self-care (01) ==
PROVIDERS: Emergency Provider Emergency Medicine
DX: K52.9 Noninfective gastroenteritis and colitis, unspecified (principal); Z20.822 Contact with and (suspected) exposure to COVID-19
CPT/HCPCS: 36415; 80053; 81003; 83690; 85025; 87502; 87635; 96360; 99284; C9803

== ENCOUNTER → 2020-09-22 07:11 | Outpatient (CLI) | payer OTHER, MEDICAID, SELFPAY ==
--- NOTE | 2020-09-22 | DI.US.S_ITS ---
PROCEDURE: US OB LIMITED INDICATIONS: EFW; GESTATIONAL DIABETES OUTSIDE/PRIOR DATING DATA: Last menstrual period (LMP): 01/14/2020.. LMP-based estimated date of delivery (RUBEN): 10/20/2020. First dating scan (date and location): 02/22/2020. Estimated date of delivery (RUBEN) from first dating scan: 10/19/2020. TECHNIQUE: Real-time scanning was performed of the fetus, with image documentation and biometric measurements. Endovaginal scanning: Not indicated. COMPARISON: [facility], OB <= 14 WEEKS FETUS, 03/06/2020, 10:48. [facility], OB >= 14 WEEKS FETUS, 06/02/2020, 9:51. FINDINGS: General: A single living intrauterine gestation is present. Presentation: Vertex. Placenta: Placental position is left posterior, without previa. Amniotic fluid index: 20.7 cm, normal range is 5-24 cm. heart rate: 158 beats per minute. Maternal cervical canal: Not well seen . biometrics: Biparietal diameter: 8.7 cm, 35 weeks, 1 day Head circumference: 32.0 cm, 36 weeks, 0 day Abdominal circumference: 31.4 cm, 35 weeks, 3 days Femur length: 6.9 cm, 35 weeks, 3 days. Estimated gestational age from initial scan: 36 weeks, 1 day. Composite gestational age from present scan: 35 weeks, 4 days Estimated weight and percentile: 2673 grams, 32 percent. Measurement variability for biometric dating: +/- 7 days from 14 weeks to 15 weeks 6 days gestation, +/- 10 days from 16 weeks to 21 weeks 6 days gestation, +/- 2 weeks from 22 weeks to 27 weeks 6 days gestation, +/- 3 weeks for 28 weeks gestation or later. weight reference: 4500 g or EFW >90/95% is considered macrosomia or large for gestational age. EFW <10% is small for gestational age. EFW 5% or less is considered intra-uterine growth restriction. Other: Umbilical cord artery S/D ratio measures 3.5, 2.3 and 2.0. IMPRESSION: 1. Single live intrauterine with fetus in vertex presentation. heart rate is 158 beats per minute. 2. Estimated weight is at 32 percent. Normal amount of amniotic fluid. 3. Normal umbilical cord artery S/D ratio. Dictated by: Lc Faustin M.D. on 09/22/2020 at 8:54 Approved by: Lc Faustin M.D. on 09/22/2020 at 8:57
== END ==
PROVIDERS: Referring Provider Nurse Practitioner Obstetrics & Gynecology; Visit Provider Nurse Practitioner Obstetrics & Gynecology
DX: O09.93 Supervision of high risk pregnancy, unspecified, third trimester (principal); O24.415 Gestational diabetes mellitus in pregnancy, controlled by oral hypoglycemic drugs; Z36.85 Encounter for antenatal screening for Streptococcus B; Z3A.36 36 weeks gestation of pregnancy
CPT/HCPCS: 76815; 87081

== ENCOUNTER → 2020-09-22 11:49 | Outpatient (ROUT) | payer OTHER, MEDICAID, SELFPAY | PROVIDERS: Visit Provider Nurse Practitioner Obstetrics & Gynecology | DX: Z36.85 Encounter for antenatal screening for Streptococcus B (principal); Z3A.36 36 weeks gestation of pregnancy | CPT/HCPCS: 87081 ==

== ENCOUNTER 2020-09-29 09:58 | Outpatient (CLI) | payer OTHER, MEDICAID, SELFPAY ==
--- NOTE | 2020-09-29 10:55 | PM.OBTRLD ---
Visit Information Visit Information Date of evaluation: 09/29/20 Primary OB Provider: Jolene Cleaning On-call OB Provider: Sandy Wiggins Reason for Evaluation: Yes non-stress test Comments/Additional reasons for admission: Patient presents for a scheduled NST for GDMA2. Vital Signs Vital Signs: 117/81, 90 PFSH Medical History Acne rosacea, papular type (05/16/12) Anxiety (~2019) Herniated disc (~2017) HSV-2 infection (~2016) Surgical History History of placement of ear tubes (~1996) Family History Grandmother Diabetes mellitus Mother Bicornate uterus Social History Smoking Status: Never smoker alcohol intake: current Evaluation Evaluation Baseline heart rate: 145 Variability: Moderate (11-25) monitor accelerations: Present Monitor Decelerations: Absent Category of Tracing: Reactive Status: Category l Diagnosis, Plan/Disposition Plan/Disposition Plan: Home with scheduled follow up and routine precautions. OB Disposition: home
== END 2020-09-29 11:00 | disposition home or self-care (01) ==
LOC: LABOR 11:12 → OB 09-30 06:43
PROVIDERS: Referring Provider Nurse Practitioner Obstetrics & Gynecology; Visit Provider Nurse Practitioner Obstetrics & Gynecology
DX: O24.415 Gestational diabetes mellitus in pregnancy, controlled by oral hypoglycemic drugs (principal); O26.893 Other specified pregnancy related conditions, third trimester; R10.30 Lower abdominal pain, unspecified; Z3A.36 36 weeks gestation of pregnancy
CPT/HCPCS: 59025; G0378; G0379

== ENCOUNTER → 2020-10-06 07:42 | Outpatient (CLI) | payer OTHER, MEDICAID, SELFPAY ==
--- NOTE | 2020-10-06 | DI.US.S_ITS ---
PROCEDURE: US OB BIOPHYSICAL PROFILE INDICATIONS: GESTATIONAL DIABETES. BIOPHYSICAL PROFILE. OUTSIDE/PRIOR DATING DATA: Last menstrual period (LMP): 01/14/20 LMP-based estimated date of delivery (RUBEN): 10/20/20 . First dating scan (date and location): 02/22/20 . Estimated date of delivery (RUBEN) from first dating scan: 10/19/20 . TECHNIQUE: Real-time scanning was performed of the fetus for biophysical profile, with image documentation. Color and pulse Doppler interrogation was also performed of the umbilical artery near its insertion into the placenta. Endovaginal scanning: Not performed COMPARISON: [facility], OB LIMITED, 09/22/2020, 7:26. [facility], OB >= 14 WEEKS FETUS, 06/02/2020, 9:51. [facility], OB <= 14 WEEKS FETUS, 03/06/2020, 10:48. [facility], OB <= 14 WEEKS FETUS, 02/22/2020, 19:15. FINDINGS: General: A single living intrauterine gestation is present. Presentation: Vertex. Placenta: Placental position is posterior , without previa. Amniotic fluid index: 21.9 cm, normal range is 5-24 cm. Largest pocket measures 6.6 cm. heart rate: 139 beats per minute. Maternal cervical canal: Not well seen Estimated gestational age from initial scan: 38 weeks 1 day Biophysical profile: Tone: 2 points. Movement: 2 points. Respiration: 2 points. Largest pocket of fluid: 2 points. IMPRESSION: Single living intrauterine fetus in vertex presentation. Normal LISSETH. Normal biophysical profile. Dictated by: Gonzalez George M.D. on 10/06/2020 at 10:22 Approved by: Gonzalez George M.D. on 10/06/2020 at 10:24
== END ==
PROVIDERS: Referring Provider Nurse Practitioner Obstetrics & Gynecology; Visit Provider Nurse Practitioner Obstetrics & Gynecology
DX: O09.93 Supervision of high risk pregnancy, unspecified, third trimester (principal); O24.415 Gestational diabetes mellitus in pregnancy, controlled by oral hypoglycemic drugs; Z3A.36 36 weeks gestation of pregnancy
CPT/HCPCS: 76819

== ENCOUNTER → 2020-10-13 08:42 | Outpatient (CLI) | payer OTHER, MEDICAID, SELFPAY ==
[2020-10-13 09:45] LABS: COVID19 -Nasal RAPID Negative (Negative)
== END ==
PROVIDERS: Referring Provider Obstetrics & Gynecology; Visit Provider Obstetrics & Gynecology
DX: Z01.812 Encounter for preprocedural laboratory examination (principal); Z20.822 Contact with and (suspected) exposure to COVID-19
CPT/HCPCS: 87635

== ENCOUNTER 2020-10-14 06:03 | Inpatient (IN) | payer OTHER, MEDICAID, SELFPAY ==
[2020-10-14 06:51] LABS: Add Manual Diff / Slide Review NO; Basophils Absolute Auto 100 /uL (0-100); Basophils Percent Auto 0.5 % (0-2); Eosinophils Absolute Auto 100 /uL (0-450); Eosinophils Percent Auto 0.9 % (2-4); Hemoglobin 12.3 g/dL (12.0-16.0); Lymphocytes Absolute Auto 3300 /uL (1100-4500); Mean Corpuscular HGB Conc 33.3 % (30-36); Mean Corpuscular Hemoglobin 28.9 PG (26-34); Mean Corpuscular Volume 86.7 fL (80-100); Monocytes Absolute Auto 900 /uL (0-900); Monocytes Percent Auto 8.1 % (3-14); Neutrophils Absolute Auto 6900 /uL (1500-7000); Neutrophils Percent Auto 61.5 % (50-75); Platelet Count 209 X10^3/uL (150-400); Red Blood Cell Count 4.27 X10^6/uL (4.0-5.2); White Blood Cell Count 11.3 X10^3/uL (4.5-11.0)
[2020-10-14] MEDS: LACTATED RINGERS 1,000 ML 100 ML IV ×3 (07:08→10:45)
--- NOTE | 2020-10-14 07:34 | PM.OBHP.1 ---
OB HPI Date/Time Date of admission: 10/14/20 Date Patient Seen: 10/14/20 Time Patient Seen: 07:34 History of Present Condition Chief complaint: PRIMARY : 1 Para: 0 Estimated Date of Delivery: 10/21/20 Estimated Gestational Age (weeks): 39 Narrative: Sherry Chung is a 25 year old @39+1 presenting for a scheduled elective section for a history of genital herpes. The patient has been on prophylactic acyclovir since 36 weeks and has no symptoms of an outbreak today, but we discussed that though the absolute risk of vertical transmission is low but not 0. She reports good movement, no LOF or vaginal bleeding, no contractions, and no other symptoms or concerns. Her has also been complicated by GDMA2 on 2000mg of metformin qHS, with good subsequent glucose control. She has a history of anxiety and depression well controlled on sertraline. The patient has previously been counselled by myself and by [facility] about the risks and benefits of elective section. We have discussed the risk of infection, the risk of damage to surrounding organs such as bowel and bladder, and the risk of hemorrhage. We have discussed the risks for future pregnancies such as uterine rupture and abnormal placentation. The patient and her partner vocalized understanding of all of the above, and strongly desire to proceed with elective section. Informed consent was obtained and consents were signed. Indications Operative indications ( section): elective History of Present care: good care, initiated at week # (13), number of visits (18) and pounds weight gain (12) Dating criteria: LMP confirmed by 1st trimester US Ultrasounds: normal mid trimester US Obstetrical complications: gestational diabetes Medical complications: none Preadmission Labs Blood type: O (+) positive -: Antibody screen: negative, GBS status: negative, HBsAG: negative, HIV: negative and RPR/VDLR: negative -: Rubella: immune and Varicella: immune Cell-free DNA: wnl 1 hr GTT: 143 Evaluation Evaluation Baseline heart rate: 150 Variability: Moderate (11-25) monitor accelerations: Present Monitor Decelerations: Absent Category of Tracing: Reactive Status: Category l Laboratory results: Laboratory Tests 10/14/20 06:20 WBC 11.3 H RBC 4.27 Hgb 12.3 Hct 37.0 MCV 86.7 MCH 28.9 MCHC 33.3 RDW 14.0 Plt Count 209 Neut % (Auto) 61.5 Lymph % (Auto) 29.0 [place] % (Auto) 8.1 Eos % (Auto) 0.9 L Baso % (Auto) 0.5 Neut # (Auto) 6900 Lymph # (Auto) 3300 [place] # (Auto) 900 Eos # (Auto) 100 Baso # (Auto) 100 PFSH Medical History Acne rosacea, papular type (05/16/12) Anxiety (~2019) Herniated disc (~2017) HSV-2 infection (~2016) Surgical History History of placement of ear tubes (~1996) Family History Grandmother Diabetes mellitus Mother Bicornate uterus Social History marital status: household members: spouse pets and animals: Yes (Cats : aware) education level: high school occupational status: employed current occupational exposures/hazards: Yes 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 Smoking Status: Never smoker second hand exposure: Yes (FOB smokes) alcohol intake: former (pre-) substance use type: does not use Meds Home Medications and Allergies Home Medications Medication Instructions Recorded Confirmed Type epinephrine 0.3 mg/0.3 mL 0.3 mg IM Q10M PRN #2 each 01/04/18 10/02/20 Rx injection, auto-injector (EpiPen 2-Harsh) metformin 500 mg tablet 500 mg PO DAILY 07/08/20 10/02/20 History prenat.vits,lyric,tiy-bjjx-dtoqw 1 tab PO DAILY 07/08/20 10/02/20 History sertraline 50 mg tablet 50 mg PO DAILY 07/08/20 10/02/20 History acyclovir 400 mg tablet 400 mg PO TID 10/02/20 10/02/20 History cimetidine 200 mg tablet 200 mg PO QACHS 10/02/20 10/02/20 History diphenhydramine HCl 25 mg 25 mg PO BEDTIME PRN 06/17/21 06/17/21 History disintegrating tablet (Unisom SleepMelts) Allergies Allergy/AdvReac Type Severity Reaction Status Date / Time bee venom protein (honey bee) Allergy Severe throat Verified 10/02/20 08:01 swelling, hives Review of Systems Constitutional Constitutional: Reports system reviewed and no additional complaints, except as documented Eyes Eyes: Reports system reviewed and no additional complaints, except as documented Cardiovascular Cardiovascular: Reports system reviewed and no additional complaints, except as documented Respiratory Respiratory: Reports system reviewed and no additional complaints, except as documented Gastrointestinal Gastrointestinal: Reports system reviewed and no additional complaints, except as documented Exam Vital Signs (past 8 hours): 126/86, pulse 123 Const General: cooperative, healthy appearing, comfortable and well groomed Resp Effort & Inspection: normal respiratory effort Cardio Rate: regular rate Rhythm: regular rhythm GI Palpation: soft and No tender Extrem General: normal to inspection Objective Labs Result Diagrams: 10/14/20 06:20 Labs: Laboratory Results - last 24 hr 10/14/20 06:20 WBC 11.3 H RBC 4.27 Hgb 12.3 Hct 37.0 MCV 86.7 MCH 28.9 MCHC 33.3 RDW 14.0 Plt Count 209 Neut % (Auto) 61.5 Lymph % (Auto) 29.0 [place] % (Auto) 8.1 Eos % (Auto) 0.9 L Baso % (Auto) 0.5 Neut # (Auto) 6900 Lymph # (Auto) 3300 [place] # (Auto) 900 Eos # (Auto) 100 Baso # (Auto) 100 Assessment and Plan Assessment and Plan Assessment and Plan narrative: THis patient is admitted for elective section for a history of genital HSV. The patient is otherwise doing well, and is being prepped for elective section this AM per the usual protocol. Informed consent was obtained after extensive counselling as above. - 2g Ancef - CBC, T&S, covid test complete
--- NOTE | 2020-10-14 08:25 | SUR.OPER ---
Supine on Padded OR bed, head on pillow, safety belt at thigh, arms secured on padded arm boards at <90 degrees abduction. Bump under right buttock. Legs uncrossed with pillow under knees, gel pad to heels, tape over blanket to lower legs.
--- NOTE | 2020-10-14 08:44 | SUR.OPER ---
CORD BLOOD AND PLACENTA TO LABOR AND DELIVERY
[2020-10-14] MEDS: CEFAZOLIN 1 GM VIAL 2 GM IV (08:50)
[2020-10-14] MEDS: ACETAMINOPHEN IV 1,000 MG/100 ML VIAL 400 MG IV (09:00)
[2020-10-14 09:17] VITALS: BP 116/77; PULSE 80; RESP 13; TEMP 36.3; O2SAT 98
[2020-10-14 09:22] VITALS: BP 131/76; PULSE 79; RESP 13; O2SAT 98
--- NOTE | 2020-10-14 09:23 | SUR.OPER ---
late entry.. tylenol given in or by Dr Sales
[2020-10-14 09:27] VITALS: BP 127/78; PULSE 90; RESP 10; O2SAT 97
[2020-10-14 09:33] VITALS: BP 131/76; PULSE 79; RESP 12; O2SAT 98
--- NOTE | 2020-10-14 09:35 | PM.OBCS.1 ---
Operative Date/Time/Diagnoses Date of procedure: 10/14/20 Time of procedure: 07:45 Pre-op diagnosis: Desires elective section Post-op diagnosis: same Procedure & Clinicians Procedure: Primary section Same procedure as scheduled: Yes Indications: Patient desires primary section due to history of genital herpes, after extensive counseling informed consent was obtained Surgeon: Sandy Wiggins Automotive Professional: Lauren Soriano Reason for Automotive Professional: Assistance with delivery of fetus and retraction and visualization. Anesthesia Type: Spinal Operative Notes Findings: Healthy male infant in cephalic presentation, weight 3522 g, Apgars 8 and 9. Normal uterus and ovaries. Small cut on nose, spontaneously hemostatic. Closure Type: primary Specimen(s): cord blood Intraoperative meds administered: Acetaminophen and Pitocin Estimated Blood Loss (mL): 400 Procedure in detail: Procedures: The patient was taken to the operating room where spinal anesthesia was placed and found to be adequate. She was prepped and draped in the normal sterile fashion in the dorsal supine position with a leftward tilt. A Pfannenstiel skin incision was made with a scalpel and carried through to the underlying layer of fascia. The fascia was incised in the midline and the incision extended laterally with Gardner scissors. The superior aspect of this incision was grasped with Saúl clamps, elevated, and the underlying rectus muscles dissected off bluntly and with the curved Gardner scissors. Attention was then turned to the inferior aspect of this incision which, in a similar fashion, was grasped, tented up with the Saúl clamps, and the rectus muscles dissected off bluntly and with the curved Gardner scissors. The rectus muscles were then in the midline, and the peritoneum identified, tented up, and entered sharply with Metzenbaum scissors. The peritoneal incision was extended superiorly and inferiorly with good visualization of the bladder. The bladder blade was inserted and the vesicouterine peritoneum identified, grasped with pickups, and entered sharply with the Metzenbaum scissors. This incision was extended laterally, and the bladder flap created digitally. The bladder blade was then reinserted and the lower uterine segment incised in transverse fashion with the scalpel. The lower uterine segment was notably thick with copious bleeding from multiple venous sinuses. The uterine incision was bluntly extended laterally. The bladder blade was removed, and the 's head delivered atraumatically with assistance of a vacuum. After 30 seconds of delayed cord clamping, the cord was clamped and cut. The nose and mouth were suctioned as needed with a bulb syringe, and the infant was handed off to awaiting pediatricians. The placenta was then removed spontaneously, and the uterus was exteriorized and cleared of all clots and debris. The uterine incision was repaired with 1-0 chromic in a running, locked fashion and a 2nd layer of the same suture was used to obtain excellent hemostasis. The uterus was returned to the abdomen, and the gutters were cleared of all clots and debris. The bladder flap was closed with 2-0 Vicryl in a running fashion, the peritoneum was closed with 3-0 Vicryl, and the fascia reapproximated with 0 Vicryl in a running fashion. The subcutaneous layer was placed with 3 0 Vicryl in an interrupted fashion and the skin was closed with 4-0 biosyn in a running fashion. The patient tolerated the procedure well. sponge lap and needle counts were correct x2. 2 g of Ancef were given at commencement of the case. The patient was taken to the recovery room in stable condition. Complications: none [place] Baby David: Gender: Male Position: Occiput Posterior Placental Delivery Description: Manual Removal Cord Vessel Description: 3 Vessels score (1 min): 8 score (5 min): 9 weight: 7 lb 12.235 oz Narrative: Small spontaneously hemostatic cory on nose, etiology unclear but thought to be obtained during initial hysterotomy in the setting of copious bleeding and poor visualization. Post-operative Condition: stable Disposition: PACU Aftercare: routine postop
[2020-10-14 09:37] VITALS: BP 124/78; PULSE 79; RESP 11; O2SAT 96
[2020-10-14 09:42] VITALS: BP 115/74; PULSE 78; RESP 15; O2SAT 98
--- NOTE | 2020-10-14 09:54 | SUR.PHASEI ---
Pt transfered to [facility] in bed. by this Rn and Palmer Sullivan Rn. Bed low, locked, SCD on, Fundal assessment done with Chelle FRAZIER, no new drainage on david-pad or abd dressing.
[2020-10-14] MEDS: BUTORPHANOL 1 MG/ML VIAL 0.5 MG IV ×2 (10:39→18:00)
[2020-10-14] MEDS: KETOROLAC 30 MG/ML VIAL IV ×2 (15:13→21:09)
[2020-10-14] MEDS: ACYCLOVIR 400 MG TABLET PO (21:08)
[2020-10-15] MEDS: KETOROLAC 30 MG/ML VIAL IV (03:26)
--- NOTE | 2020-10-15 06:44 | P.PNOB_ITS ---
Subjective - OB Subjective Patient comments: pain well controlled [place] baby status: doing well feeding status: exclusively breast feeding (Baby is not feeding well yet ) Date Patient Seen: 10/15/20 Time Patient Seen: 06:44 Interval history: Patient is postoperative day 1 primary section who denies nausea, headaches, scotomata, epigastric pain. She states her pain is under control. She has been able to urinate since her Crane catheter was removed. Exam Vital Signs (past 8 hours): Blood pressure 114/81, pulse of 89, temperature 98.4? Oxygen Delivery Method Room Air Narrative Exam Narrative: Patient's abdomen is soft, nontender. Uterus is firm, appropriately tender at U. mild lochia. Extremities without edema and nontender. Objective Labs Result Diagrams: 10/14/20 06:20 Labs: Laboratory Results - last 24 hr 10/14/20 10/14/20 06:20 06:20 WBC 11.3 H RBC 4.27 Hgb 12.3 Hct 37.0 MCV 86.7 MCH 28.9 MCHC 33.3 RDW 14.0 Plt Count 209 Neut % (Auto) 61.5 Lymph % (Auto) 29.0 [place] % (Auto) 8.1 Eos % (Auto) 0.9 L Baso % (Auto) 0.5 Neut # (Auto) 6900 Lymph # (Auto) 3300 [place] # (Auto) 900 Eos # (Auto) 100 Baso # (Auto) 100 Blood Type O Positive Antibody Screen Negative Assessment & Plan Plan day: 1 plan OB: routine postop care Time Spent With Patient Time: Total time spent is greater than 50% in coordination of care (as documented) at patient's floor/unit and/or counseling patient: Time with patient: less than 15 minutes
[2020-10-15 06:50] LABS: Add Manual Diff / Slide Review NO; Basophils Absolute Auto 100 /uL (0-100); Basophils Percent Auto 0.5 % (0-2); Eosinophils Absolute Auto 100 /uL (0-450); Eosinophils Percent Auto 1.2 % (2-4); Hematocrit 30.8 % (36-46); Hemoglobin 10.3 g/dL (12.0-16.0); Lymphocytes Absolute Auto 2000 /uL (1100-4500); Lymphocytes Percent Auto 15.8 % (25-40); Mean Corpuscular HGB Conc 33.4 % (30-36); Mean Corpuscular Hemoglobin 29.4 PG (26-34); Mean Corpuscular Volume 87.9 fL (80-100); Monocytes Absolute Auto 1000 /uL (0-900); Neutrophils Absolute Auto 9200 /uL (1500-7000); Neutrophils Percent Auto 74.5 % (50-75); Platelet Count 191 X10^3/uL (150-400); Red Blood Cell Count 3.51 X10^6/uL (4.0-5.2); White Blood Cell Count 12.3 X10^3/uL (4.5-11.0)
[2020-10-15] MEDS: DOCUSATE 250 MG CAPSULE PO (09:14)
[2020-10-15] MEDS: ACETAMINOPHEN 325 MG TABLET 650 MG PO ×3 (09:14→22:19)
[2020-10-15] MEDS: ACYCLOVIR 400 MG TABLET PO ×3 (09:15→21:03)
[2020-10-15] MEDS: IBUPROFEN 600 MG TABLET PO ×3 (10:02→22:19)
[2020-10-15 10:12] VITALS: BP 126/86
[2020-10-15] MEDS: OXYCODONE IR 5 MG TABLET PO ×2 (14:54→18:53)
[2020-10-15] MEDS: SERTRALINE 50 MG TABLET PO (21:04)
[2020-10-15] MEDS: OXYCODONE IR 10 MG TABLET PO (23:35)
[2020-10-16] MEDS: OXYCODONE IR 5 MG TABLET PO ×3 (03:23→11:43)
[2020-10-16] MEDS: IBUPROFEN 600 MG TABLET PO ×2 (04:51→11:11)
[2020-10-16] MEDS: ACETAMINOPHEN 325 MG TABLET 650 MG PO ×2 (04:52→11:10)
[2020-10-16 07:19] VITALS: BP 109/76; PULSE 86; RESP 16; TEMP 36.4
[2020-10-16] MEDS: DOCUSATE 250 MG CAPSULE PO (08:13)
[2020-10-16] MEDS: ACYCLOVIR 400 MG TABLET PO (08:13)
--- NOTE | 2020-10-16 08:33 | P.DS_ITS ---
Discharge Providers Provider Date of admission: 10/14/20 06:03 Discharge Date: 10/16/20 Consults: 10/14/20 10:18 Consult to Technical Sales Representatives Routine Comment: Discharge provider: Sandy Wiggins MD Summary Hospital Course Date Patient Seen: 10/16/20 Time Patient Seen: 08:00 Diagnoses: s/p elective primary section Hospital Course: This patient was admitted for a scheduled primary section, elective due to history of genital herpes. Her intraoperative and course was uncomplicated, and she met postoperative goals appropriately. She was discharged home on POD#2 with routine precautions and follow up. Peripartum Data Delivery Method: Section David: Gender: Male Disposition of : home Status at Discharge Cognitive/behavioral status at discharge: oriented Functional status at discharge: independent ambulation Overall status at discharge: patient is progressing back to baseline Time Spent with Patient Time attestation: Total time spent providing and/or coordinating discharge services: Objective Labs Result Diagrams: 10/15/20 06:40 Exam Vital Signs (past 8 hours): - 109/76, HR 86 10/16/20 07:19 Temperature 97.6 F Pulse Rate 86 Respiratory Rate 16 Blood Pressure 109/76 Oxygen Delivery Method Room Air Narrative Exam Narrative: Patient well appearing, resting in bed infant. Const General: cooperative, healthy appearing, comfortable and well groomed Orientation: alert, awake and oriented x3 Resp Effort & Inspection: normal respiratory effort Auscultation: clear to auscultation bilaterally Cardio Rate: regular rate Rhythm: regular rhythm GI Inspection: incision (c/d/i, covered by aquacell) Palpation: soft and No tender Extrem General: normal to inspection Discharge Plan Discharge Plan Patient Disposition: Home Discharge orders & Medications Prescriptions: New oxycodone 5 mg tablet 5 mg PO Q6H PRN (Reason: pain) Qty: 20 RF: 0 Continued acyclovir 400 mg tablet 400 mg PO TID RF: 0 Unisom SleepMelts 25 mg tablet,disintegrating 25 mg PO BEDTIME PRN (Reason: Sleep) RF: 0 cimetidine 200 mg tablet 200 mg PO QACHS RF: 0 metformin 500 mg tablet 500 mg PO DAILY RF: 0 sertraline 50 mg tablet 50 mg PO DAILY RF: 0 prenat.vits,lyric,hmq-rqet-fjjbj Tablet 1 tab PO DAILY RF: 0 epinephrine [EpiPen 2-Harsh] 0.3 mg/0.3 mL auto-injector 0.3 mg IM Q10M PRN (Reason: anaphylaxis) Qty: 2 RF: 0 Follow up/Referrals: Sandy Wiggins MD [Physician] - (October 23, , at 11:45am with Dr Wiggins for dressing removal Follow up with Jolene as scheduled) Diet/Activity/Treatments Diet: Regular Activity: Nothing in the vagina for 6 weeks. Avoid lifting more than 10 lbs for 6 weeks. If you have increasing bleeding, fevers, chills, nausea, vomiting, headaches, or any other symptoms or concerns, call or come to the emergency room. Skin/Wound/Dressing Care Report to your healthcare provider any signs of infection, such as:: chills, fever, night sweats, increased pain, unusual drainage and unusual redness Visit Report/Discharge Packet Instructions: Stand Alone Forms: Discharge: Care
[2020-10-16] MEDS: MEASLES,MUMPS,RUBELLA VACC/PF 0.5 ML VIAL SUBCUT (11:11)
== END 2020-10-16 11:48 | disposition home or self-care (01) | DRG 788 ==
PROVIDERS: Admitting Provider Obstetrics & Gynecology; Referring Provider Nurse Practitioner Obstetrics & Gynecology; Visit Provider Obstetrics & Gynecology
PROC: 10D00Z1 Extraction of Products of Conception, Low, Open Approach (ICD-10-PCS; CPT 59514; principal; 2020-10-14 07:45)
DX: O98.32 Other infections with a predominantly sexual mode of transmission complicating childbirth (principal); A60.00 Herpesviral infection of urogenital system, unspecified; Z3A.39 39 weeks gestation of pregnancy; Z37.0 Single live birth
CPT/HCPCS: 36415; 59050; 59514; 59515; 82962; 85025; 86850; 86900; 86901; J0131; J0595; J0690; J1885; J2250; J2274; J2590

== ENCOUNTER 2020-11-24 12:38 | Emergency (ER) | payer OTHER, MEDICAID, SELFPAY ==
[2020-11-24 12:41] VITALS: BP 147/69; PULSE 110; RESP 18; TEMP 36.8; O2SAT 98
--- NOTE | 2020-11-24 13:52 | ED.ALLEREA ---
HPI - Allergic Reaction <Aidee Whitney, OFFICE SYSTEM ANALYST-BC - Last Filed: 11/24/20 15:23> General Chief complaint: Allergic Reaction Stated complaint: Stung by Bee, Allergic Time Seen by Provider: 11/24/20 13:30 Source: patient Mode of arrival: Ambulatory Limitations: no limitations History of Present Illness HPI narrative: the patient is a 25-year-old female nonsmoker who is 6 weeks who presents with a chief complaint of being stung by a bee at approximately 12:30 p.m.. She states that she has a history of allergic reactions to bee stings which include swelling of her lips tongue and face. She came directly to the emergency department rather than using her EpiPen. She has not taken anything since this happened. She was offered protocol allergic reaction medications by the triage nurse, which she declined because she is . She is her 6-week-old infant Son. she currently denies any swelling of her lips face or tongue, she denies any chest pain or shortness of breath. She states that she had a red denisse on her right arm where she was stung, but that has been improving emergency department today. She reiterates that she would like to hold off on medications and only take them if she needs them. Related Data Home Medications Medication Instructions Recorded Confirmed metformin 500 mg tablet 500 mg PO DAILY 07/08/20 10/15/20 prenat.vits,lyric,xje-clkk-ittip 1 tab PO DAILY 07/08/20 10/15/20 sertraline 50 mg tablet 50 mg PO DAILY 07/08/20 10/15/20 acyclovir 400 mg tablet 400 mg PO TID 10/02/20 10/15/20 cimetidine 200 mg tablet 200 mg PO QACHS 10/02/20 10/15/20 diphenhydramine HCl 25 mg 25 mg PO BEDTIME PRN 10/02/20 10/15/20 disintegrating tablet (Unisom SleepMelts) Previous Rx's Medication Instructions Recorded epinephrine 0.3 mg/0.3 mL 0.3 mg IM Q10M PRN #2 each 01/04/18 injection, auto-injector (EpiPen 2-Harsh) oxycodone 5 mg tablet 5 mg PO Q6H PRN #20 tab 10/16/20 Allergies Allergy/AdvReac Type Severity Reaction Status Date / Time bee venom protein (honey bee) Allergy Severe throat Verified 10/02/20 08:01 swelling, hives Review of Systems <SCOTTY Hernandez - Last Filed: 11/24/20 15:23> Review of Systems Narrative: GENERAL: Denies chills, fatigue, malaise, fever, sweats. HEENT: Denies sinus pain, ear pain, sore throat, difficulty swallowing, dizziness. RESPIRATORY: see HPI CARDIOVASCULAR: Denies chest pain, palpitations, orthopnea, edema, GASTROINTESTINAL: Denies nausea, vomiting, abdominal pain, diarrhea, constipation, melena. : Denies dysuria, frequency, incontinence, hematuria, urinary retention. MUSCULOSKELETAL: denies weakness, joint pain, or bony pain SKIN: see HPI NEUROLOGIC: Denies weakness, headache, numbness, change in speech, confusion, seizures, incoordination. PSYCHIATRIC: No concerning psychosocial issues. 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 Normocephalic. No temporal or scalp tenderness. EYES: Pupils equal round and reactive. Extraocular motions intact. No scleral icterus. No injection or drainage. ENT: Nose without bleeding, purulent drainage or septal hematoma. Throat without erythema, tonsillar hypertrophy or exudate. Uvula midline. Airway patent. no swelling of her lips face or tongue. NECK: Trachea midline. No JVD or lymphadenopathy. Supple, nontender, no meningeal signs. CARDIOVASCULAR: Regular rate and rhythm without murmurs, gallops, or rubs. RESPIRATORY: Clear to auscultation. Breath sounds equal bilaterally. No wheezes, rales, or rhonchi. No cough. No increased respiratory effort. No accessory muscle use. Speaking full sentences. GASTROINTESTINAL: Abdomen soft, non-tender, nondistended. No hepato-splenomegaly, or palpable masses. No guarding. EXTREMITIES: No clubbing, cyanosis, or edema. No joint tenderness, effusion, or edema noted. BACK: Nontender without deformity or crepitance. No flank tenderness. NEURO: AOx3. SKIN: Very slight 4 cm area of erythema noted on right bicep, sting location per patient Initial Vital Signs Initial Vital Signs: Vital Signs Temperature 98.2 F 11/24/20 12:41 Pulse Rate 110 H 11/24/20 12:41 Respiratory Rate 18 11/24/20 12:41 Blood Pressure 147/69 H 11/24/20 12:41 Pulse Oximetry 98 11/24/20 12:41 <Jaime Rose DO - Last Filed: 11/24/20 17:08> Initial Vital Signs Initial Vital Signs: Vital Signs Temperature 98.2 F 11/24/20 12:41 Pulse Rate 110 H 11/24/20 12:41 Respiratory Rate 18 11/24/20 12:41 Blood Pressure 147/69 H 11/24/20 12:41 Pulse Oximetry 98 11/24/20 12:41 Scores <SCOTTY Hernandez - Last Filed: 11/24/20 15:23> GCS Jet coma scale eye opening: Spontaneous Bradford coma scale verbal response: Orientated Jet coma scale motor response: Obey commands Bradford coma scale total score: 15 <Jaime Rose DO - Last Filed: 11/24/20 17:08> GCS Bradford coma scale total score: 15 Course <Aidee WhitneyCAROL ANN-BC - Last Filed: 11/24/20 15:23> Vital Signs Vital signs: Vital Signs - 8 hr 11/24/20 12:41 11/24/20 14:58 Temperature 98.2 F Pulse Rate 110 H 74 Respiratory Rate 18 16 Blood Pressure 147/69 H 118/79 Pulse Oximetry 98 99 <Jaime MorrisonrobbieDO - Last Filed: 11/24/20 17:08> Vital Signs Vital signs: Vital Signs - 8 hr 11/24/20 12:41 11/24/20 14:58 Temperature 98.2 F Pulse Rate 110 H 74 Respiratory Rate 18 16 Blood Pressure 147/69 H 118/79 Pulse Oximetry 98 99 MDM - Allergic Reaction <Aidee WhitneySUZIEBC - Last Filed: 11/24/20 15:23> MDM Narrative Medical decision making narrative: The patient is a 25-year-old female who presents with a chief complaint of being stung by a bee with an allergy. She declined medications unless she absolutely needed them because she is . She was observed for the emergency department for several hours, did not have any swelling of her lips face or tongue or shortness of breath. She was discharged home with strict ED return precautions for any acute concerns, instructions to take her EpiPen if necessary, follow-up with primary care provider. Patient has no questions or concerns upon discharge has been hemodynamically stable in no acute distress with no complaints throughout her stay in the emergency department. Discharge Plan Departure Patient Disposition: Home Clinical Impression: Bee sting Qualifiers: Encounter type: initial encounter Injury intent: accidental or unintentional Qualified Code(s): T63.441A - Toxic effect of venom of bees, accidental (unintentional), initial encounter Instructions: DI for Anaphylaxis, DI for Insect Bites and Stings Activity Restrictions/Additional Instructions: Thank you for trusting us with your care today. Today we monitored your you for several hours after your bee sting and you have done well. As discussed, please come back to the emergency department for any acute concerns such as shortness of breath, swelling of her lips face or tongue. Please do not hesitate to use your EpiPen if necessary. Prescriptions: No Action acyclovir 400 mg tablet 400 mg PO TID RF: 0 Unisom SleepMelts 25 mg tablet,disintegrating 25 mg PO BEDTIME PRN (Reason: Sleep) RF: 0 cimetidine 200 mg tablet 200 mg PO QACHS RF: 0 metformin 500 mg tablet 500 mg PO DAILY RF: 0 sertraline 50 mg tablet 50 mg PO DAILY RF: 0 prenat.vits,lyric,ema-ewcm-szfbu Tablet 1 tab PO DAILY RF: 0 oxycodone 5 mg tablet 5 mg PO Q6H PRN (Reason: pain) Qty: 20 RF: 0 epinephrine [EpiPen 2-Harsh] 0.3 mg/0.3 mL auto-injector 0.3 mg IM Q10M PRN (Reason: anaphylaxis) Qty: 2 RF: 0 Referrals: Miscellaneous,Doctor, [Primary Care Provider] - <Jaime Rose, - Last Filed: 11/24/20 17:08> [facility] Dr Rose Co-Sign Statement: I was available for consultation during this patient's emergency department visit. This chart is signed by myself for administrative purposes only. I did not have direct contact with this patient during this visit. They were seen independently by the APC.
[2020-11-24 14:58] VITALS: BP 118/79; PULSE 74; RESP 16; O2SAT 99
== END 2020-11-24 15:06 | disposition home or self-care (01) ==
PROVIDERS: Emergency Provider Nurse Practitioner Family
DX: T63.441A Toxic effect of venom of bees, accidental (unintentional), initial encounter (principal)
CPT/HCPCS: 99281

== ENCOUNTER → 2021-01-01 09:01 | Outpatient (CLI) | payer OTHER, MEDICAID, SELFPAY ==
[2021-01-01 10:31] LABS: Glucose Fasting 94 mg/dL (70-100)
[2021-01-01 11:39] LABS: Glucose Tol Interpretation INTERPRETATION
[2021-01-01 12:09] LABS: Glucose 1 Hour 164 mg/dL (70-170)
[2021-01-01 13:24] LABS: Glucose 2 Hour 115 mg/dL (70-140)
== END ==
PROVIDERS: Referring Provider Nurse Practitioner Obstetrics & Gynecology; Visit Provider Nurse Practitioner Obstetrics & Gynecology
DX: Z13.1 Encounter for screening for diabetes mellitus (principal); Z86.32 Personal history of gestational diabetes
CPT/HCPCS: 36415; 82951; 82952

== ENCOUNTER → 2021-07-25 09:06 | Outpatient (CLI) | payer OTHER, MEDICAID, SELFPAY | PROVIDERS: Referring Provider Nurse Practitioner Critical Care Medicine; Visit Provider Nurse Practitioner Critical Care Medicine | DX: J02.9 Acute pharyngitis, unspecified (principal) | CPT/HCPCS: 87070; 87077; 87147 ==

== ENCOUNTER → 2021-08-07 10:52 | Outpatient (CLI) | payer OTHER, MEDICAID, SELFPAY ==
[2021-08-07 12:25] LABS: Influenza A - CEPHEID Flu A NEGATIVE (NEGATIVE); Influenza B - CEPHEID Flu B NEGATIVE (NEGATIVE); Respiratory Syncytial Virus Negative (Negative)
[2021-08-07 12:35] LABS: COVID-19 CEPHEID PCR (VTM/NP) Negative (Negative)
== END ==
PROVIDERS: Visit Provider Nurse Practitioner Family
DX: J02.9 Acute pharyngitis, unspecified (principal); Z20.822 Contact with and (suspected) exposure to COVID-19
CPT/HCPCS: 0241U

== ENCOUNTER → 2021-09-05 13:02 | Outpatient (CLI) | payer OTHER, MEDICAID, SELFPAY | PROVIDERS: Visit Provider Nurse Practitioner Family | DX: J02.9 Acute pharyngitis, unspecified (principal) | CPT/HCPCS: 87070; 87880 ==

== ENCOUNTER → 2022-04-14 08:42 | Outpatient (CLI) | payer OTHER, MEDICAID, SELFPAY ==
--- NOTE | 2022-04-14 08:44 | DI.US.S_ITS ---
ULTRASOUND OF LEFT BREAST: 04/14/2022 CLINICAL: Palpable left breast lump. No prior exams were available for comparison. Color flow and real-time ultrasound of the left breast were performed. Merino scale images of the real-time examination were reviewed. No significant abnormalities were seen sonographically in the left breast. IMPRESSION: PROBABLY BENIGN No mass or other significant abnormality at the patient's area of palpable concern. A follow-up ultrasound in 6 months is recommended to demonstrate stability. This exam was interpreted at Station ID: [id number]. Electronically Signed By: Shane Romero M.D. jr/:04/15/2022 14:51:34 letter sent: Followup Recommended Ultrasound BI-RADS: 3 Probably benign
== END ==
PROVIDERS: Referring Provider Nurse Practitioner Family; Visit Provider Nurse Practitioner Family
DX: N63.20 Unspecified lump in the left breast, unspecified quadrant (principal)
CPT/HCPCS: 76642

== ENCOUNTER → 2022-06-10 07:33 | Outpatient (CLI) | payer OTHER, MEDICAID, SELFPAY ==
[2022-06-10 08:27] LABS: Hemoglobin A1C% w Est Avg Glu 5.6 % (4.0-6.0)
[2022-06-10 08:54] LABS: Alanine Aminotransferase 20 IU/L (<35); Albumin 4.1 g/dL (3.5-5.0); Albumin Globulin Ratio 1.4 (1.0-2.8); Alkaline Phosphatase 90 U/L (38-126); Aspartate Aminotransferase 21 IU/L (14-36); BUN Creatinine Ratio 12.5 (6-22); Bilirubin Total 0.6 mg/dL (0.2-1.3); Blood Urea Nitrogen 9 mg/dL (7-17); Carbon Dioxide 22 mmol/L (22-32); Chloride 106 mmol/L (98-107); Cholesterol 154 mg/dL (140-199); Estimated Glomerular Filt Rate > 60 mL/min (>60); Globulin 2.9 g/dL (1.7-4.1); Glucose 107 mg/dL (70-100); HDL Cholesterol 54 mg/dL (40-60); HEMOLYSIS < 15 (0-50); LDL Cholesterol Calculated 76 mg/dL (<100); Potassium 4.2 mmol/L (3.4-5.1); Sodium 136 mmol/L (137-145); Triglycerides 120 mg/dL (35-150)
[2022-06-10 09:01] LABS: Free T3, Triiodothyronine Free 4.64 pg/mL (2.77-5.27)
[2022-06-10 09:14] LABS: Thyroid Stimulating Hormone 2.09 uIU/mL (0.47-4.68)
== END ==
PROVIDERS: PCP Family Medicine; Referring Provider Family Medicine; Visit Provider Family Medicine
DX: O24.419 Gestational diabetes mellitus in pregnancy, unspecified control (principal); E66.9 Obesity, unspecified; F32.A Depression, unspecified; F41.9 Anxiety disorder, unspecified; Z13.9 Encounter for screening, unspecified; Z34.90 Encounter for supervision of normal pregnancy, unspecified, unspecified trimester
CPT/HCPCS: 36415; 80053; 80061; 82306; 83036; 84439; 84443; 84481

== ENCOUNTER → 2022-06-17 07:15 | Outpatient (CLI) | payer OTHER, MEDICAID, SELFPAY ==
[2022-06-17 08:53] LABS: Influenza A - CEPHEID Flu A NEGATIVE (NEGATIVE); Influenza B - CEPHEID Flu B NEGATIVE (NEGATIVE); Respiratory Syncytial Virus Negative (Negative)
[2022-06-17 08:54] LABS: COVID-19 CEPHEID 4-PLEX PCR Negative (Negative)
== END ==
PROVIDERS: PCP Family Medicine; Visit Provider Registered Nurse
DX: J06.9 Acute upper respiratory infection, unspecified (principal)
CPT/HCPCS: 0241U

== ENCOUNTER → 2022-06-17 07:50 | Outpatient (CLI) | payer OTHER, MEDICAID, SELFPAY ==
--- NOTE | 2022-06-17 07:52 | DI.RAD.S_ITS ---
PROCEDURE: XR CHEST 2V INDICATIONS: Cough TECHNIQUE: 2 views of the chest were acquired. COMPARISON: None. FINDINGS: Surgical changes and devices: None. Lungs and pleura: Subtle focal airspace opacities are projected over the left lower lung, likely within the lingula. The lungs are otherwise clear. No pleural effusion or pneumothorax. Mediastinum: Mediastinal contours are normal. Heart size is normal. Bones and chest wall: No suspicious bony abnormalities. Soft tissues appear unremarkable. IMPRESSION: Left lower lung pulmonary radiopacities suggesting early lobar pneumonia. Dictated by: Courtney Toussaint M.D. on 06/17/2022 at 8:33 Approved by: Courtney Toussaint M.D. on 06/17/2022 at 8:33
== END ==
PROVIDERS: PCP Family Medicine; Referring Provider Registered Nurse; Visit Provider Registered Nurse
DX: J06.9 Acute upper respiratory infection, unspecified (principal); R05.9 Cough, unspecified
CPT/HCPCS: 0241U; 71046

== ENCOUNTER → 2022-08-16 09:18 | Outpatient (CLI) | payer OTHER, MEDICAID, SELFPAY | PROVIDERS: PCP Family Medicine; Visit Provider Family Medicine | DX: N89.8 Other specified noninflammatory disorders of vagina (principal) | CPT/HCPCS: 81002; 87086; 87210 ==

== ENCOUNTER → 2022-08-16 10:02 | Outpatient (ROUT) | payer OTHER, MEDICAID, SELFPAY | PROVIDERS: PCP Family Medicine; Visit Provider Family Medicine | DX: N89.8 Other specified noninflammatory disorders of vagina (principal) | CPT/HCPCS: 87210 ==

== ENCOUNTER → 2022-08-26 09:57 | Outpatient (CLI) | payer OTHER, MEDICAID, SELFPAY ==
--- NOTE | 2022-08-26 09:58 | DI.RAD.S_ITS ---
PROCEDURE: XR CHEST 2V INDICATIONS: Cough TECHNIQUE: 2 views of the chest were acquired. COMPARISON: [facility], CR, XR CHEST 2V, 06/17/2022, 8:00. FINDINGS: Surgical changes and devices: None. Lungs and pleura: Lungs are clear. No pleural effusions or pneumothorax. Mediastinum: Mediastinal contours are normal. Heart size is normal. Bones and chest wall: No suspicious bony abnormalities. Soft tissues appear unremarkable. IMPRESSION: No acute cardiopulmonary abnormalities or focal airspace disease. Dictated by: Esdras Williamson M.D. on 08/26/2022 at 10:33 Approved by: Esdras Williamson M.D. on 08/26/2022 at 10:34
== END ==
PROVIDERS: PCP Family Medicine; Referring Provider Nurse Practitioner Family; Visit Provider Nurse Practitioner Family
DX: R05.9 Cough, unspecified (principal)
CPT/HCPCS: 71046

== ENCOUNTER → 2022-10-20 12:41 | Outpatient (CLI) | payer OTHER, MEDICAID, SELFPAY ==
--- NOTE | 2022-10-20 12:42 | DI.US.S_ITS ---
LIMITED ULTRASOUND OF LEFT BREAST: 10/20/2022 CLINICAL: Palpable left breast lump. Comparison is made to exam dated: 04/14/2022 [facility]. Color flow and real-time ultrasound of the left breast were performed. Merino scale images of the real-time examination were reviewed. No significant abnormalities were seen sonographically in the left breast. IMPRESSION: NEGATIVE There is no sonographic evidence of malignancy. There is no abnormality seen in the left breast to correspond with the area of clinical concern at 12 o'clock, however, clinical correlation and clinical followup are recommended. This exam was interpreted at Station ID: [id number]. Electronically Signed By: Ryley Medina M.D. lc/:10/20/2022 13:20:21 letter sent: Clinical Evaluation Ultrasound BI-RADS: 1 Negative
== END ==
PROVIDERS: PCP Family Medicine; Referring Provider Family Medicine; Visit Provider Family Medicine
DX: N63.25 Unspecified lump in the left breast, overlapping quadrants (principal)
CPT/HCPCS: 76642

== ENCOUNTER → 2023-04-25 08:16 | Outpatient (CLI) | payer OTHER, MEDICAID, SELFPAY ==
[2023-04-25 09:30] LABS: COVID-19 CEPHEID 4-PLEX PCR Negative (Negative); Influenza A - CEPHEID Flu A NEGATIVE (NEGATIVE); Influenza B - CEPHEID Flu B NEGATIVE (NEGATIVE); Respiratory Syncytial Virus POSITIVE (Negative)
== END ==
PROVIDERS: PCP Family Medicine; Visit Provider Nurse Practitioner Family
DX: J02.9 Acute pharyngitis, unspecified (principal)
CPT/HCPCS: 0241U; 87070; 87147; 87880

== ENCOUNTER → 2023-06-22 07:46 | Outpatient (CLI) | payer OTHER, MEDICAID, SELFPAY ==
[2023-06-22 08:54] LABS: Influenza A - CEPHEID Flu A NEGATIVE (NEGATIVE); Influenza B - CEPHEID Flu B NEGATIVE (NEGATIVE); Respiratory Syncytial Virus Negative (Negative)
[2023-06-22 08:55] LABS: COVID-19 CEPHEID 4-PLEX PCR Negative (Negative)
== END ==
PROVIDERS: PCP Family Medicine; Visit Provider Nurse Practitioner Family
DX: R05.9 Cough, unspecified (principal); J02.9 Acute pharyngitis, unspecified
CPT/HCPCS: 87635; 87400 ×2; 87420; 0241U; 87070

== ENCOUNTER → 2023-07-12 08:32 | Outpatient (CLI) | payer OTHER, MEDICAID, SELFPAY ==
--- NOTE | 2023-07-12 08:33 | DI.US.S_ITS ---
ULTRASOUND OF LEFT BREAST: 07/12/2023 CLINICAL: Palpable left breast lump. Comparison is made to exams dated: 10/20/2022 ultrasound and 04/14/2022 [facility]. Color flow and real-time ultrasound of the left breast were performed. Merino scale images of the real-time examination were reviewed. No significant abnormalities were seen sonographically in the left breast. IMPRESSION: NEGATIVE There is no sonographic evidence of malignancy. There is no abnormality seen in the left breast to correspond with the area of clinical concern and patient directed area of palpable abnormality at 11 o'clock, however, recommend clinical follow up for persistent or worsening symptoms, or development of any clinically suspicious findings. Recommend initiating routine screening mammograms at age 40. Findings and recommendations were conveyed to the patient during today's evaluation. This exam was interpreted at Station ID: [id number]. Electronically Signed By: Esdras Williamson M.D. aty/:07/12/2023 09:16:40 letter sent: Clinical Evaluation Ultrasound BI-RADS: 1 Negative
== END ==
PROVIDERS: PCP Family Medicine; Referring Provider Family Medicine; Visit Provider Family Medicine
DX: N63.20 Unspecified lump in the left breast, unspecified quadrant (principal)
CPT/HCPCS: 76642

== ENCOUNTER → 2023-07-14 08:20 | Outpatient (CLI) | payer OTHER, MEDICAID, SELFPAY ==
[2023-07-14 10:47] LABS: TSH w/ Reflex to FT4 0.23 uIU/mL (0.47-4.68)
[2023-07-14 11:36] LABS: Free T4, Direct Thyroxine 0.83 ng/dL (0.78-2.19)
== END ==
PROVIDERS: PCP Family Medicine; Referring Provider Family Medicine; Visit Provider Family Medicine
DX: E03.9 Hypothyroidism, unspecified (principal)
CPT/HCPCS: 36415; 84439; 84443

== ENCOUNTER → 2023-08-23 10:23 | Outpatient (CLI) | payer OTHER, MEDICAID, SELFPAY ==
[2023-08-23 11:09] LABS: Hemoglobin A1C% w Est Avg Glu 5.6 % (4.0-6.0)
[2023-08-23 11:14] LABS: Cholesterol 161 mg/dL (140-199); HDL Cholesterol 54 mg/dL (40-60); LDL Cholesterol Calculated 89 mg/dL (<100); Triglycerides 90 mg/dL (35-150)
[2023-08-23 11:30] LABS: Free T3, Triiodothyronine Free 4.84 pg/mL (2.77-5.27)
[2023-08-23 11:44] LABS: TSH w/ Reflex to FT4 0.58 uIU/mL (0.47-4.68)
[2023-08-23 15:02] LABS: Creatinine Urine Random 106.6 mg/dL
[2023-08-23 15:05] LABS: Microalbumi Creatinin Ratio Ur 5.6 ug/mg CR (<30); Microalbumin Urine Random 0.6 mg/dL (0-1.6)
[2023-08-24 15:51] LABS: Anti Thyroglobulin Antibody <1.0 IU/mL (0.0-0.9); Thyroid Peroxidase Antibodies <9 IU/mL (0-34)
== END ==
LOC: LAB 10:24
PROVIDERS: Family Provider Family Medicine; PCP Family Medicine; Referring Provider Family Medicine; Visit Provider Family Medicine
DX: O24.419 Gestational diabetes mellitus in pregnancy, unspecified control (principal); E03.9 Hypothyroidism, unspecified; E05.90 Thyrotoxicosis, unspecified without thyrotoxic crisis or storm
CPT/HCPCS: 36415; 80061; 82043; 82570; 83036; 84443; 84481; 86376; 86800

== ENCOUNTER 2023-09-06 09:45 | Outpatient (RCR) | payer OTHER, MEDICAID, SELFPAY ==
--- NOTE | 2023-08-09 11:52 | PT.OIE ---
Current Diagnoses Other chronic pain (08/09/23) Pain in right knee (08/09/23) Pain in left knee (08/09/23) Dorsalgia, unspecified (08/09/23) Abnormal posture (08/09/23) Weakness (08/09/23) Past Medical History (Last Reviewed 06/17/22 @ 07:48 by LYNN Luna) Acne rosacea, papular type (05/16/12) Anxiety (~2019) delivery delivered Herniated disc (~2017) HSV-2 infection (~2016) Rubella non-immune status, antepartum Past Surgical History (Last Reviewed 06/17/22 @ 07:48 by LYNN Luna) History of placement of ear tubes (~1996) Visit Care Team Role Provider Type Amina Lopez DO Family Provider Physician Primary Care Provider Specialty: Medical Address: [address] [place] [address], [address], [id number] Email: [email or web address] Chika Simmons DO Attending Provider Physician Referring Provider Specialty: Family Practice Address: [address] [place] [address], [id number] Email: [email or web address] Physical Therapy Initial Evaluation PT-OP-A Visit Information Start: 08/08/23 17:44 Freq: Status: Active Protocol: Document 08/09/23 09:52 [facility] (Rec: 08/09/23 11:51 [facility] [id number]) Out-Patient Physical Therapy Visit Information Visit Information Visit Start Time 09:52 Visit Stop Time 10:37 Visit Number 05/11 Number of OSTEOPATHIC RESIDENT Visits 0 PT-OP-B Current Condition Start: 08/08/23 17:44 Freq: Status: Active Protocol: Document 08/09/23 09:52 [facility] (Rec: 08/09/23 11:51 [facility] [id number]) Current Condition History of Current Condition Onset Date chronic Current Complaints LBP, B post leg numb/tingling, neck pain, B ant knee pain History of Current Condition Pt reports back pain that has been 10 years or longer. She is starting PT as she is thinking breasts heaviness may relate to back pain and considering reduction as she is a 34G. Has not done PT. Neck pain present for 10 years or more. She had neck and back pain in HS. Has hx of c- section about 3 years ago. She gets numb spots/tingling in her shoulder blade area. Gets lat hip pain B and gets tingly -numb pain down post legs. This has been many years now. It stops at the ankle. Sometimes gets weakness in the LB. She has episodes wehre very small movements throw out of her back and she can't walk and has trouble moving. GOes to [facility] for 4-5x/week for a few weeks . It is very random. Denies numbness/ tingling down arms. She has B ant knee pain that a couple months ago when started going the gym, ant knee started feeling tight and swollen. She is not currently going any more d/t throwing back out and knee pain. She was doing the [employer] (more high intestity activity (med balls, ropes, wts). She stays at home with her 3 year old and when her back goes out, has difficulty caring for him and picking him up etc. 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 Episodes of back giving out 6 years ago that have inc since her child. notes only incontinence small amounts w/ tramp jumping. No hx of specific injuries. no imagine done. 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 She has had trouble w/back being thrown out w/this. 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 Pt just stopped a couple weeks from breast feeding Treatment Goals Patient/Caregiver Goals care for son w/o back limiting , be able to do work around the house w/o back limitations PT-OP-C Subjective Start: 08/08/23 17:44 Freq: Status: Active Protocol: Document 08/09/23 09:52 [facility] (Rec: 08/09/23 11:51 [facility] [id number]) Patient Questionnaires Oswestry Low Back Index Oswestry Score 28% OP-PT Pain Assessment Location back pain Pain Location Details LS and B hips Description Aching,Sharp Frequency Frequent Radiating Location tingly/numb down post legs Variations/Patterns tingly numb R scap Pain Aggravating Factors Bending,Lifting Other Pain Aggravating Factors random movt give out; repeitive, being on feet extended,1st wake up Other Pain Alleviating Factors chiro PT-OP-D Balance Start: 08/08/23 17:44 Freq: Status: Active Protocol: Document 08/09/23 09:52 [facility] (Rec: 08/09/23 11:51 [facility] [id number]) Balance Tests Single Limb Standing Single Limb- Right lat shear to R less >30 sec Single Limb- Left lat shear to L >30 sec PT-OP-F Manual Assessment Start: 08/08/23 17:44 Freq: Status: Active Protocol: Document 08/09/23 09:52 [facility] (Rec: 08/09/23 11:51 [facility] [id number]) Manual Assessments Joint Mobility Assessment Joint Mobility Assessment rigid midfoot PT-OP-G Mobility & Gait Start: 08/08/23 17:44 Freq: Status: Active Protocol: Document 08/09/23 09:52 [facility] (Rec: 08/09/23 11:51 [facility] [id number]) OP Gait Assessment Comments Gait Comments L side>R dec wt acceptance; B dec push off PT-OP-J Posture/Palpation/Skin Start: 08/08/23 17:44 Freq: Status: Active Protocol: Document 08/09/23 09:52 [facility] (Rec: 08/09/23 11:51 [facility] [id number]) Posture Evaluation [facility] Postural Classification System Ronak Postural Classifications Posterior/Posterior Vertebral Compression Test 0 Elbow Flexion Test 2 Lumbar Protective Mechanism Left AP 0 Lumbar Protective Mechanism Right AP 0 Lumbar Protective Mechanism Left PA 5 Lumbar Protective Mechanism Right PA 5 Comments Posture Comments L>R pronation; R pelvic shear, L rot; R iliac crest, greater trochanter & fibular head higher PT-OP-L Special Tests Start: 08/08/23 17:44 Freq: Status: Active Protocol: Document 08/09/23 09:52 [facility] (Rec: 08/09/23 11:51 [facility] [id number]) Special Tests Lumbar Spine Special Tests Slump Test Results L shoulder blade pain w/RLE; inc tension LLE PT-OP-M Strength Start: 08/08/23 17:44 Freq: Status: Active Protocol: Document 08/09/23 09:52 [facility] (Rec: 08/09/23 11:51 [facility] [id number]) Hip Strength Hip Manual Muscle Testing Right Flexion (L2) 4- Good- Extension (S1) 5 Normal Abduction 5 Normal Adduction 5 Normal External Rotation 4 Good Internal Rotation 5 Normal Left Flexion (L2) 4- Good- Extension (S1) 5 Normal Abduction 5 Normal Adduction 4- Good- External Rotation 4+ Good+ Internal Rotation 5 Normal Comments dec core stability noted w/MMT Knee Strength Knee Manual Muscle Testing Right Flexion (S2) 4 Good Extension (L3) 5 Normal Left Flexion (S2) 4 Good Extension (L3) 5 Normal Ankle/Foot Strength Ankle and Foot Manual Muscle Testing Right Dorsiflexion (L4) 5 Normal Plantarflexion (S1) 4+ Good+ Left Dorsiflexion (L4) 5 Normal Plantarflexion (S1) 4+ Good+ Comments 15 heel raises B PT-OP-Q Treatments Start: 08/08/23 17:44 Freq: Status: Active Protocol: Document 08/09/23 09:52 [facility] (Rec: 08/09/23 11:51 [facility] [id number]) Self-Care/Home Management Treatment Education Other Education 9 min: edu re: bra qualities that can help with pain (thick straps, underwire support and rated for high support, cross back bras, adjustable straps) ; edu on companies like [employer] that have larger cup size options; edu on how her L foot position affects posture and pelvic shear PT-OP-T Assessment and Plan Start: 08/08/23 17:44 Freq: Status: Active Protocol: Document 08/09/23 09:52 [facility] (Rec: 08/09/23 11:51 [facility] [id number]) Physical Therapy Assessment Goals strength Short Term Goal (STG) Pt will be indep w/HEP STG Duration 09/14 Ct Scan Technician Goal (LTG) Pt will show improved core stability by scoring at least 4/5 on EFT and AP w/LPM in order to allow improved stability for daily activities . LTG Duration 10/31 posture Short Term Goal (STG) Pt will demonstrate improved postural alignment by improved VCT to at least 2/5 STG Duration 09/14 Retirement Goal (LTG) Pt will demonstrate improved postural alignment by improved VCT to at least 4/5 LTG Duration 10/[address] Technician Goal (LTG) Pt will report dec instances of LBP/ back giving out and dec overall neck pain and B knee pain w/daily activities including care for son. LTG Duration 11/01/23 Assessment Summary Assessment Pt presents w/chronic neck and back pain w/recent years B numb/tingling down post legs, which has been present since HS. Pt has larger breasts, which she compensates for w/ her posture and likely inc pressure onto her thoracic spine and lumbar spine, resulting in postural abnormalities including dowagers hump that likely is related to neck pain. She has dec core control and leg length discrepency which may be d/t excessive pronation of L foot causing L side to be shorter. She has mild tension w/slump test, which may be related to B post leg tingling /numb feeling. She overall has good strength in LEs with mild weakness, but d/t posture and mechanical restrictions. She also has recent (in past few months) onset of B ant knee pain related to starting working out, which she is no longer doing d/t pain. She would benefit from skilled PT to improve her daily function and mobility w/ less pain. Physical Therapy Plan Frequency and Duration Frequency of Treatment 1-2x/wk Duration of treatment (weeks) 12 Plan of Care Start Date 08/09/23 Plan of Care End Date 11/01/23 Therapeutic Interventions Therapeutic Interventions Balance Training,Gait Training ,Home Exercise Program,Joint Mobilizations,Manual Therapy, Neuromuscular Re-education, Orthotic/Prosthetic Management ,Patient/Caregiver Education, Self-Care/Home Management,Soft Tissue Mobilization,Taping, Therapeutic Activities, Therapeutic Exercises Modalities Cold Pack/Ice Massage,Electric Stimulation,Hot Packs, Infrared Therapy,Ultrasound Next Visit Focus/Plan Next Note Type Treatment Note Next Visit Plan cervical ligamentous testing and arterial screening prior to working on neck Manual work to hip and SI to improve alignment along w/L foot then work on arch lifts, and supine core work or paloff press standing, scap rows, hip hinge, squats Train w/log roll, hip hinge, squat and lifting mechanics PNF for core facilitation
--- NOTE | 2023-08-09 11:52 | PT.OPPOC ---
Physical, Occupational & Speech Therapy At [facility] Current Diagnoses Other chronic pain (08/09/23) Pain in right knee (08/09/23) Pain in left knee (08/09/23) Dorsalgia, unspecified (08/09/23) Abnormal posture (08/09/23) Weakness (08/09/23) Visit Care Team Role Provider Type Amina Lopez DO Family Provider Physician Primary Care Provider Specialty: Medical Address: [address] [place] [address], [address] [place] [address], [address] Email: [email or web address] Chika Simmons DO Attending Provider Physician Referring Provider Specialty: Family Practice Address: [address] [place] [address], [address], [address] Email: [email or web address] Plan Of Care PT-OP-T Assessment and Plan Start: 08/08/23 17:44 Freq: Status: Active Protocol: Document 08/09/23 09:52 [facility] (Rec: 08/09/23 11:51 [facility] [id number]) Physical Therapy Assessment Goals strength Short Term Goal (STG) Pt will be indep w/HEP STG Duration 09/14 Retirement Goal (LTG) Pt will show improved core stability by scoring at least 4/5 on EFT and AP w/LPM in order to allow improved stability for daily activities . LTG Duration 10/31 posture Short Term Goal (STG) Pt will demonstrate improved postural alignment by improved VCT to at least 2/5 STG Duration 09/14 Quality Lab Technician Goal (LTG) Pt will demonstrate improved postural alignment by improved VCT to at least 4/5 LTG Duration 10/31 pain Retirement Goal (LTG) Pt will report dec instances of LBP/ back giving out and dec overall neck pain and B knee pain w/daily activities including care for son. LTG Duration 11/01/23 Assessment Summary Assessment Pt presents w/chronic neck and back pain w/recent years B numb/tingling down post legs, which has been present since HS. Pt has larger breasts, which she compensates for w/ her posture and likely inc pressure onto her thoracic spine and lumbar spine, resulting in postural abnormalities including dowagers hump that likely is related to neck pain. She has dec core control and leg length discrepency which may be d/t excessive pronation of L foot causing L side to be shorter. She has mild tension w/slump test, which may be related to B post leg tingling /numb feeling. She overall has good strength in LEs with mild weakness, but d/t posture and mechanical restrictions. She also has recent (in past few months) onset of B ant knee pain related to starting working out, which she is no longer doing d/t pain. She would benefit from skilled PT to improve her daily function and mobility w/ less pain. Physical Therapy Plan Frequency and Duration Frequency of Treatment 1-2x/wk Duration of treatment (weeks) 12 Plan of Care Start Date 08/09/23 Plan of Care End Date 11/01/23 Therapeutic Interventions Therapeutic Interventions Balance Training,Gait Training ,Home Exercise Program,Joint Mobilizations,Manual Therapy, Neuromuscular Re-education, Orthotic/Prosthetic Management ,Patient/Caregiver Education, Self-Care/Home Management,Soft Tissue Mobilization,Taping, Therapeutic Activities, Therapeutic Exercises Modalities Cold Pack/Ice Massage,Electric Stimulation,Hot Packs, Infrared Therapy,Ultrasound Next Visit Focus/Plan Next Note Type Treatment Note Next Visit Plan cervical ligamentous testing and arterial screening prior to working on neck Manual work to hip and SI to improve alignment along w/L foot then work on arch lifts, and supine core work or paloff press standing, scap rows, hip hinge, squats Train w/log roll, hip hinge, squat and lifting mechanics PNF for core facilitation Plan of Care Dates Plan of Care Start Date 08/09/23 Plan of Care End Date 11/01/23 Electronically Signed by: Marilynn Carrasco, PT 08/09/23 [id number] If you are in agreement with this Plan of Care, please return a signed and dated copy. I have reviewed this Plan of Care and certify that the skilled therapy services above are required to meet the patient?s needs. Physician Signature Date Printed Name and Credentials Clinical Instructor Signature Printed Name and Credentials
--- NOTE | 2023-08-15 08:20 | PT.OTN ---
Current Diagnoses Other chronic pain (08/15/23) Pain in right knee (08/15/23) Pain in left knee (08/15/23) Dorsalgia, unspecified (08/15/23) Abnormal posture (08/15/23) Weakness (08/15/23) Physical Therapy Treatment Note PT-OP-A Visit Information Start: 08/08/23 17:44 Freq: Status: Active Protocol: Document 08/15/23 07:34 SP (Rec: 08/15/23 08:24 SP [id number]) Out-Patient Physical Therapy Visit Information Visit Information Visit Type Treatment Note Visit Start Time 07:34 Visit Stop Time 08:20 Visit Number 06/11 Number of VOLLEYBALL PLAYER Visits 1 PT-OP-B Current Condition Start: 08/08/23 17:44 Freq: Status: Active Protocol: Document 08/09/23 09:52 [facility] (Rec: 08/09/23 11:51 [facility] [id number]) Current Condition History of Current Condition Onset Date chronic Current Complaints LBP, B post leg numb/tingling, neck pain, B ant knee pain History of Current Condition Pt reports back pain that has been 10 years or longer. She is starting PT as she is thinking breasts heaviness may relate to back pain and considering reduction as she is a 34G. Has not done PT. Neck pain present for 10 years or more. She had neck and back pain in HS. Has hx of c- section about 3 years ago. She gets numb spots/tingling in her shoulder blade area. Gets lat hip pain B and gets tingly -numb pain down post legs. This has been many years now. It stops at the ankle. Sometimes gets weakness in the LB. She has episodes wehre very small movements throw out of her back and she can't walk and has trouble moving. GOes to [facility] for 4-5x/week for a few weeks . It is very random. Denies numbness/ tingling down arms. She has B ant knee pain that a couple months ago when started going the gym, ant knee started feeling tight and swollen. She is not currently going any more d/t throwing back out and knee pain. She was doing the fit body boot camp (more high intestity activity (med balls, ropes, wts). She stays at home with her 3 year old and when her back goes out, has difficulty caring for him and picking him up etc. 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 Episodes of back giving out 6 years ago that have inc since her child. notes only incontinence small amounts w/ tramp jumping. No hx of specific injuries. no imagine done. 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 She has had trouble w/back being thrown out w/this. 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 Pt just stopped a couple weeks from breast feeding Treatment Goals Patient/Caregiver Goals care for son w/o back limiting , be able to do work around the house w/o back limitations PT-OP-C Subjective Start: 08/08/23 17:44 Freq: Status: Active Protocol: Document 08/15/23 07:34 SP (Rec: 08/15/23 08:24 SP [id number]) OP-PT Subjective Patient Comments Patient Comments Pt reports no foam roller or Tball at home. 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 PT-OP-D Balance Start: 08/08/23 17:44 Freq: Status: Active Protocol: Document 08/09/23 09:52 [facility] (Rec: 08/09/23 11:51 [facility] [id number]) Balance Tests Single Limb Standing Single Limb- Right lat shear to R less >30 sec Single Limb- Left lat shear to L >30 sec PT-OP-F Manual Assessment Start: 08/08/23 17:44 Freq: Status: Active Protocol: Document 08/09/23 09:52 [facility] (Rec: 08/09/23 11:51 [facility] [id number]) Manual Assessments Joint Mobility Assessment Joint Mobility Assessment rigid midfoot PT-OP-G Mobility & Gait Start: 08/08/23 17:44 Freq: Status: Active Protocol: Document 08/09/23 09:52 [facility] (Rec: 08/09/23 11:51 [facility] [id number]) OP Gait Assessment Comments Gait Comments L side>R dec wt acceptance; B dec push off PT-OP-J Posture/Palpation/Skin Start: 08/08/23 17:44 Freq: Status: Active Protocol: Document 08/09/23 09:52 [facility] (Rec: 08/09/23 11:51 [facility] [id number]) Posture Evaluation [facility] Postural Classification System [facility] Postural Classifications Posterior/Posterior Vertebral Compression Test 0 Elbow Flexion Test 2 Lumbar Protective Mechanism Left AP 0 Lumbar Protective Mechanism Right AP 0 Lumbar Protective Mechanism Left PA 5 Lumbar Protective Mechanism Right PA 5 Comments Posture Comments L>R pronation; R pelvic shear, L rot; R iliac crest, greater trochanter & fibular head higher PT-OP-L Special Tests Start: 08/08/23 17:44 Freq: Status: Active Protocol: Document 08/09/23 09:52 [facility] (Rec: 08/09/23 11:51 [facility] [id number]) Special Tests Lumbar Spine Special Tests Slump Test Results L shoulder blade pain w/RLE; inc tension LLE PT-OP-M Strength Start: 08/08/23 17:44 Freq: Status: Active Protocol: Document 08/09/23 09:52 [facility] (Rec: 08/09/23 11:51 [facility] [id number]) Hip Strength Hip Manual Muscle Testing Right Flexion (L2) 4- Good- Extension (S1) 5 Normal Abduction 5 Normal Adduction 5 Normal External Rotation 4 Good Internal Rotation 5 Normal Left Flexion (L2) 4- Good- Extension (S1) 5 Normal Abduction 5 Normal Adduction 4- Good- External Rotation 4+ Good+ Internal Rotation 5 Normal Comments dec core stability noted w/MMT Knee Strength Knee Manual Muscle Testing Right Flexion (S2) 4 Good Extension (L3) 5 Normal Left Flexion (S2) 4 Good Extension (L3) 5 Normal Ankle/Foot Strength Ankle and Foot Manual Muscle Testing Right Dorsiflexion (L4) 5 Normal Plantarflexion (S1) 4+ Good+ Left Dorsiflexion (L4) 5 Normal Plantarflexion (S1) 4+ Good+ Comments 15 heel raises B PT-OP-Q Treatments Start: 08/08/23 17:44 Freq: Status: Active Protocol: Document 08/15/23 07:34 SP (Rec: 08/15/23 08:24 SP [id number]) Therapeutic Exercises Supine Exercises over foam roller Supine Exercise Name pec stretch, FF/snow surinder/Ts, TS ext Equipment Used over noodle Reps/Minutes 5 x2 each Comments good TS and scapular ROM reported, TA Supine Exercise Name 1. TA trng 2. TA LTR check self does 3. TA segmental march Reps/Minutes 2. 5 reps warm up wake up pre mobility 3. good response and ab engagement Comments pnfree, good core engagement Sitting Exercises TS rotation Sitting Exercise Name added to HEP Side bilateral Resistance AROM Reps/Minutes 5 reps 3 SH each side Comments good postural alignment, pnfree range after come to sitting piriformis stretch Sitting Exercise Name added to HEP Side bilateral Reps/Minutes 30-60 sec each Comments cradle knee toward opp shld- good hip stretch Manual Therapy Treatment Soft Tissue Mobilization scar mobility Body Location scar Mobilization Type Myofascial Release,Sustained Pressure,Other Body Position Hooklying Comments gentle MFR glides little nausea on L side, stationary / c breath abdominals Body Location Rec Ab, Diaphram, iliacus, psoas Mobilization Type Myofascial Release,Sustained Pressure,Other Body Position Hooklying Comments gentle MFR with breath TS, LS Body Location ES, paraspinals Mobilization Type Strumming Intensity/Depth Moderate Body Position Prone Comments STMs, Discussion use of tennis /racquetball in pillowcase along muscles at wall (not demo'd end tx) Self-Care/Home Management Treatment Education Patient Education Home Exercise Program,Posture Other Education 3min: Brief review understanding ed last tx regarding bras selection and how full coverage can support relate to posture and back support. Initated UE ROM over noodle for elongation anterior chain and activation posterior for postural support . Good tolerance and form during initated core segmental march. PT-OP-T Assessment and Plan Start: 08/08/23 17:44 Freq: Status: Active Protocol: Document 08/15/23 07:34 SP (Rec: 08/15/23 08:24 SP [id number]) Physical Therapy Assessment Goals strength Short Term Goal (STG) Pt will be indep w/HEP STG Duration 09/14 Usp Goal (LTG) Pt will show improved core stability by scoring at least 4/5 on EFT and AP w/LPM in order to allow improved stability for daily activities . LTG Duration 10/31 posture Short Term Goal (STG) Pt will demonstrate improved postural alignment by improved VCT to at least 2/5 STG Duration 09/14 Usp Goal (LTG) Pt will demonstrate improved postural alignment by improved VCT to at least 4/5 LTG Duration 10/31 pain Racecourse Barrier Attendant Goal (LTG) Pt will report dec instances of LBP/ back giving out and dec overall neck pain and B knee pain w/daily activities including care for son. LTG Duration 11/01/23 Assessment Summary Assessment Pt is limited to tolerance in supine/hooklying positions. Good response to manual and initiated UEs ROM over noodle for decreased tension over anterior chest area. Good core support during june with minimal cues. Would benefit from quadruped activities in future tx. Physical Therapy Plan Frequency and Duration Frequency of Treatment 1-2x/wk Duration of treatment (weeks) 12 Plan of Care Start Date 08/09/23 Plan of Care End Date 11/01/23 Therapeutic Interventions Therapeutic Interventions Balance Training,Gait Training ,Home Exercise Program,Joint Mobilizations,Manual Therapy, Neuromuscular Re-education, Orthotic/Prosthetic Management ,Patient/Caregiver Education, Self-Care/Home Management,Soft Tissue Mobilization,Taping, Therapeutic Activities, Therapeutic Exercises Modalities Cold Pack/Ice Massage,Electric Stimulation,Hot Packs, Infrared Therapy,Ultrasound Next Visit Focus/Plan Next Note Type Treatment Note Next Visit Plan Check response to manual and initiated: HEP. POC PT next tx: cervical ligamentous testing and arterial screening prior to working on neck Manual work to hip and SI to improve alignment along w/L foot then work on arch lifts, and supine core work or paloff press standing, scap rows, hip hinge, squats Train w/log roll, hip hinge, squat and lifting mechanics PNF for core facilitation
--- NOTE | 2023-08-17 10:48 | PT-OP ANOTE ---
Pt called last night to cancel appt, no reason given.
--- NOTE | 2023-08-30 14:18 | PT.OTN ---
Current Diagnoses Other chronic pain (08/30/23) Pain in right knee (08/30/23) Pain in left knee (08/30/23) Dorsalgia, unspecified (08/30/23) Abnormal posture (08/30/23) Weakness (08/30/23) Physical Therapy Treatment Note PT-OP-A Visit Information Start: 08/08/23 17:44 Freq: Status: Active Protocol: Document 08/30/23 11:23 [facility] (Rec: 08/30/23 14:18 [facility] [id number]) Out-Patient Physical Therapy Visit Information Visit Information Visit Type Treatment Note Visit Start Time 11:23 Visit Stop Time 12:02 Visit Number 07/09 Number of SUPERVISOR DUMPING Visits 0 PT-OP-B Current Condition Start: 08/08/23 17:44 Freq: Status: Active Protocol: Document 08/09/23 09:52 [facility] (Rec: 08/09/23 11:51 [facility] [id number]) Current Condition History of Current Condition Onset Date chronic Current Complaints LBP, B post leg numb/tingling, neck pain, B ant knee pain History of Current Condition Pt reports back pain that has been 10 years or longer. She is starting PT as she is thinking breasts heaviness may relate to back pain and considering reduction as she is a 34G. Has not done PT. Neck pain present for 10 years or more. She had neck and back pain in HS. Has hx of c- section about 3 years ago. She gets numb spots/tingling in her shoulder blade area. Gets lat hip pain B and gets tingly -numb pain down post legs. This has been many years now. It stops at the ankle. Sometimes gets weakness in the LB. She has episodes wehre very small movements throw out of her back and she can't walk and has trouble moving. GOes to [facility]5x[facility]week for a few weeks . It is very random. Denies numbness/ tingling down arms. She has B ant knee pain that a couple months ago when started going the gym, ant knee started feeling tight and swollen. She is not currently going any more d/t throwing back out and knee pain. She was doing the fit body boot camp (more high intestity activity (med balls, ropes, wts). She stays at home with her 3 year old and when her back goes out, has difficulty caring for him and picking him up etc. 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 Episodes of back giving out 6 years ago that have inc since her child. notes only incontinence small amounts w/ tramp jumping. No hx of specific injuries. no imagine done. 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 She has had trouble w/back being thrown out w/this. 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 Pt just stopped a couple weeks from breast feeding Treatment Goals Patient/Caregiver Goals care for son w/o back limiting , be able to do work around the house w/o back limitations PT-OP-C Subjective Start: 08/08/23 17:44 Freq: Status: Active Protocol: Document 08/30/23 11:23 [facility] (Rec: 08/30/23 14:18 [facility] [id number]) OP-PT Subjective Patient Comments Patient Comments laying on back exercsies like on pool noodle inc back pain. Trying to do standing core like bringing elbow to knee when can fit in. PT-OP-D Balance Start: 08/08/23 17:44 Freq: Status: Active Protocol: Document 08/09/23 09:52 [facility] (Rec: 08/09/23 11:51 [facility] [id number]) Balance Tests Single Limb Standing Single Limb- Right lat shear to R less >30 sec Single Limb- Left lat shear to L >30 sec PT-OP-F Manual Assessment Start: 08/08/23 17:44 Freq: Status: Active Protocol: Document 08/09/23 09:52 [facility] (Rec: 08/09/23 11:51 [facility] [id number]) Manual Assessments Joint Mobility Assessment Joint Mobility Assessment rigid midfoot PT-OP-G Mobility & Gait Start: 08/08/23 17:44 Freq: Status: Active Protocol: Document 08/09/23 09:52 [facility] (Rec: 08/09/23 11:51 [facility] [id number]) OP Gait Assessment Comments Gait Comments L side>R dec wt acceptance; B dec push off PT-OP-J Posture/Palpation/Skin Start: 08/08/23 17:44 Freq: Status: Active Protocol: Document 08/09/23 09:52 [facility] (Rec: 08/09/23 11:51 [facility] [id number]) Posture Evaluation [facility] Postural Classification System [facility] Postural Classifications Posterior/Posterior Vertebral Compression Test 0 Elbow Flexion Test 2 Lumbar Protective Mechanism Left AP 0 Lumbar Protective Mechanism Right AP 0 Lumbar Protective Mechanism Left PA 5 Lumbar Protective Mechanism Right PA 5 Comments Posture Comments L>R pronation; R pelvic shear, L rot; R iliac crest, greater trochanter & fibular head higher PT-OP-L Special Tests Start: 08/08/23 17:44 Freq: Status: Active Protocol: Document 08/09/23 09:52 [facility] (Rec: 08/09/23 11:51 [facility] [id number]) Special Tests Lumbar Spine Special Tests Slump Test Results L shoulder blade pain w/RLE; inc tension LLE PT-OP-M Strength Start: 08/08/23 17:44 Freq: Status: Active Protocol: Document 08/09/23 09:52 [facility] (Rec: 08/09/23 11:51 [facility] [id number]) Hip Strength Hip Manual Muscle Testing Right Flexion (L2) 4- Good- Extension (S1) 5 Normal Abduction 5 Normal Adduction 5 Normal External Rotation 4 Good Internal Rotation 5 Normal Left Flexion (L2) 4- Good- Extension (S1) 5 Normal Abduction 5 Normal Adduction 4- Good- External Rotation 4+ Good+ Internal Rotation 5 Normal Comments dec core stability noted w/MMT Knee Strength Knee Manual Muscle Testing Right Flexion (S2) 4 Good Extension (L3) 5 Normal Left Flexion (S2) 4 Good Extension (L3) 5 Normal Ankle/Foot Strength Ankle and Foot Manual Muscle Testing Right Dorsiflexion (L4) 5 Normal Plantarflexion (S1) 4+ Good+ Left Dorsiflexion (L4) 5 Normal Plantarflexion (S1) 4+ Good+ Comments 15 heel raises B PT-OP-Q Treatments Start: 08/08/23 17:44 Freq: Status: Active Protocol: Document 08/30/23 11:23 [facility] (Rec: 08/30/23 14:18 [facility] [id number]) Therapeutic Exercises Sitting Exercises TS rotation Sitting Exercise Name added to HEP Side bilateral Resistance AROM Reps/Minutes 5 sH ea Comments good postural alignment, pnfree range after come to sitting piriformis stretch Sitting Exercise Name added to HEP Side bilateral Reps/Minutes 30 sec Comments cradle knee toward opp shld- good hip stretch Standing Exercises paloff press Side bilateral Equipment Used lvl 2 (2 bands) Reps/Minutes 12 ea squat Side bilateral Reps/Minutes 2x8 Comments unable to stop pop in knee. hip hinge Standing Exercise Name w/dowel on back Side bilateral Reps/Minutes 10 Manual Therapy Treatment Soft Tissue Mobilization glutes Body Location R>L Body Position Prone Comments w/gentle IR/ER back Body Location lumbar Mobilization Type Rolling Intensity/Depth Moderate Joint Mobilizations hip Comments R free the ball ER FM ; attempted hip on axis ER but painful in prone innominate Comments L caudal, L add FM sacrum Comments L caudal and UPA R FM PT-OP-T Assessment and Plan Start: 08/08/23 17:44 Freq: Status: Active Protocol: Document 08/30/23 11:23 [facility] (Rec: 08/30/23 14:18 [facility] [id number]) Physical Therapy Assessment Goals strength Short Term Goal (STG) Pt will be indep w/HEP STG Duration 09/14 Cardiac Catheterization Technologist Goal (LTG) Pt will show improved core stability by scoring at least 4/5 on EFT and AP w/LPM in order to allow improved stability for daily activities . LTG Duration 10/31 posture Short Term Goal (STG) Pt will demonstrate improved postural alignment by improved VCT to at least 2/5 STG Duration 09/14 Fdc Goal (LTG) Pt will demonstrate improved postural alignment by improved VCT to at least 4/5 LTG Duration 10/31 pain Fdc Goal (LTG) Pt will report dec instances of LBP/ back giving out and dec overall neck pain and B knee pain w/daily activities including care for son. LTG Duration 11/01/23 Assessment Summary Assessment Attempted small bit of cover roll tape and KT tape on ea wrist to test tape tolerance and pt informed to take off if gets itchy or bothers her at all. She did well with standing exercises except squats that got click in lat knee w/discomfort so stopped squat. Physical Therapy Plan Frequency and Duration Frequency of Treatment 1-2x/wk Duration of treatment (weeks) 12 Plan of Care Start Date 08/09/23 Plan of Care End Date 11/01/23 Next Visit Focus/Plan Next Note Type Treatment Note Next Visit Plan POC PT next tx: cervical ligamentous testing and arterial screening prior to working on neck Manual work to hip and SI to improve alignment ; standign core activities, hip hinge, squats as improve pop. Train w/log roll, hip hinge, squat and lifting mechanics PNF for core facilitation
--- NOTE | 2023-09-01 17:04 | PT.OTN ---
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 She is starting PT as she is thinking breasts heaviness may relate to back pain and considering reduction as she is a 34G. Has not done PT. Neck pain present for 10 years or more. She had neck and back pain in HS. Has hx of c- section about 3 years ago. She gets numb spots/tingling in her shoulder blade area. Gets lat hip pain B and gets tingly -numb pain down post legs. This has been many years now. It stops at the ankle. Sometimes gets weakness in the LB. She has episodes wehre very small movements throw out of her back and she can't walk and has trouble moving. GOes to [facility] for 4-5x/week for a few weeks . It is very random. Denies numbness/ tingling down arms. She has B ant knee pain that a couple months ago when started going the gym, ant knee started feeling tight and swollen. She is not currently going any more d/t throwing back out and knee pain. She was doing the fit body boot camp (more high intestity activity (med balls, ropes, wts). She stays at home with her 3 year old and when her back goes out, has difficulty caring for him and picking him up etc. 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 Episodes of back giving out 6 years ago that have inc since her child. notes only incontinence small amounts w/ tramp jumping. No hx of specific injuries. no imagine done. 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 She has had trouble w/back being thrown out w/this. 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 Pt just stopped a couple weeks from breast feeding Treatment Goals Patient/Caregiver Goals care for son w/o back limiting , be able to do work around the house w/o back limitations PT-OP-C Subjective Start: 08/08/23 17:44 Freq: Status: Active Protocol: Document 09/01/23 12:06 AB (Rec: 09/01/23 17:04 [id number]) OP-PT Subjective Patient Comments Patient Comments Patient reports she is the same PT-OP-D Balance Start: 08/08/23 17:44 Freq: Status: Active Protocol: Document 08/09/23 09:52 [facility] (Rec: 08/09/23 11:51 [facility] [id number]) Balance Tests Single Limb Standing Single Limb- Right lat shear to R less >30 sec Single Limb- Left lat shear to L >30 sec PT-OP-F Manual Assessment Start: 08/08/23 17:44 Freq: Status: Active Protocol: Document 08/09/23 09:52 [facility] (Rec: 08/09/23 11:51 [facility] [id number]) Manual Assessments Joint Mobility Assessment Joint Mobility Assessment rigid midfoot PT-OP-G Mobility & Gait Start: 08/08/23 17:44 Freq: Status: Active Protocol: Document 08/09/23 09:52 [facility] (Rec: 08/09/23 11:51 [facility] [id number]) OP Gait Assessment Comments Gait Comments L side>R dec wt acceptance; B dec push off PT-OP-J Posture/Palpation/Skin Start: 08/08/23 17:44 Freq: Status: Active Protocol: Document 08/09/23 09:52 [facility] (Rec: 08/09/23 11:51 [facility] [id number]) Posture Evaluation [place] Postural Classification System [facility] Postural Classifications Posterior/Posterior Vertebral Compression Test 0 Elbow Flexion Test 2 Lumbar Protective Mechanism Left AP 0 Lumbar Protective Mechanism Right AP 0 Lumbar Protective Mechanism Left PA 5 Lumbar Protective Mechanism Right PA 5 Comments Posture Comments L>R pronation; R pelvic shear, L rot; R iliac crest, greater trochanter & fibular head higher PT-OP-L Special Tests Start: 08/08/23 17:44 Freq: Status: Active Protocol: Document 08/09/23 09:52 [facility] (Rec: 08/09/23 11:51 [facility] [id number]) Special Tests Lumbar Spine Special Tests Slump Test Results L shoulder blade pain w/RLE; inc tension LLE PT-OP-M Strength Start: 08/08/23 17:44 Freq: Status: Active Protocol: Document 08/09/23 09:52 [facility] (Rec: 08/09/23 11:51 [facility] [id number]) Hip Strength Hip Manual Muscle Testing Right Flexion (L2) 4- Good- Extension (S1) 5 Normal Abduction 5 Normal Adduction 5 Normal External Rotation 4 Good Internal Rotation 5 Normal Left Flexion (L2) 4- Good- Extension (S1) 5 Normal Abduction 5 Normal Adduction 4- Good- External Rotation 4+ Good+ Internal Rotation 5 Normal Comments dec core stability noted w/MMT Knee Strength Knee Manual Muscle Testing Right Flexion (S2) 4 Good Extension (L3) 5 Normal Left Flexion (S2) 4 Good Extension (L3) 5 Normal Ankle/Foot Strength Ankle and Foot Manual Muscle Testing Right Dorsiflexion (L4) 5 Normal Plantarflexion (S1) 4+ Good+ Left Dorsiflexion (L4) 5 Normal Plantarflexion (S1) 4+ Good+ Comments 15 heel raises B PT-OP-Q Treatments Start: 08/08/23 17:44 Freq: Status: Active Protocol: Document 09/01/23 12:06 AB (Rec: 09/01/23 17:04 AB [id number]) Therapeutic Exercises Supine Exercises piriformis stretch Side bilateral Reps/Minutes 60 seconds each Comments verbal cues Modified Corby stretch. Side bilateral Reps/Minutes X1 each LE Comments not elvis left, reports some back pain right Standing Exercises great toe abduction Side bilateral Reps/Minutes X2 Comments tactile cues, to dec knee hyper extension in standing squat Side bilateral Reps/Minutes 2X10 Comments Verbal cues to perform a minimal squat without pain or popping Therapeutic Activity Therapeutic Activity sit to stand Reps/Minutes X3 Comments Verbal cues to increase knee flexion to just past 90 deg to decrease use of momentum and force on LS area, and pt ed use of self tactile cues for hip hinge. log roll Name supine to and from sit Reps/Minutes 1 Comments Verbal cues to align shoulder and hip when rolling, for timing with sidelying to sit and to scoot back in sitting prior to sit to sidelying transition. Manual Therapy Treatment Soft Tissue Mobilization hip flexors Body Location bilateral Mobilization Type Cross-Friction Intensity/Depth Moderate Body Position Hooklying glutes Body Location bilateral Mobilization Type Cross-Friction,Rolling Intensity/Depth Moderate Body Position Sidelying Taping back Body Location mid thoracic to proximal sacral area Treatment Focus posture and pain Type of Tape Kinesiotape Skin Inspection WNL Comments Pt ed to remove tape in 3-5 days or immediately if skin irritation occurs. knees Body Location bilateral knees Treatment Focus unload fat pats and track more medially Type of Tape Leukotape and cover roll Skin Inspection WNL PT-OP-T Assessment and Plan Start: 08/08/23 17:44 Freq: Status: Active Protocol: Document 09/01/23 12:06 AB (Rec: 09/01/23 17:04 AB [id number]) Physical Therapy Assessment Goals strength Short Term Goal (STG) Pt will be indep w/HEP STG Duration 09/14 Spacer Type Bar And Segment Goal (LTG) Pt will show improved core stability by scoring at least 4/5 on EFT and AP w/LPM in order to allow improved stability for daily activities . LTG Duration 10/31 posture Short Term Goal (STG) Pt will demonstrate improved postural alignment by improved VCT to at least 2/5 STG Duration 09/14 Spacer Type Bar And Segment Goal (LTG) Pt will demonstrate improved postural alignment by improved VCT to at least 4/5 LTG Duration 10/31 pain Spacer Type Bar And Segment Goal (LTG) Pt will report dec instances of LBP/ back giving out and dec overall neck pain and B knee pain w/daily activities including care for son. LTG Duration 11/01/23 Assessment Summary Assessment Popping and pain with squat persists with squat post tapping, but is able to perform a mini squat without pain or popping. Patient able to transfer sit to stand with improved mechanics, ie adequate knee flexion bilaterally, and reports dec pain when log rolling. Physical Therapy Plan Frequency and Duration Frequency of Treatment 1-2x/wk Duration of treatment (weeks) 12 Plan of Care Start Date 08/09/23 Plan of Care End Date 11/01/23 Next Visit Focus/Plan Next Note Type Treatment Note Next Visit Plan POC PT next tx: cervical ligamentous testing and arterial screening prior to working on neck Manual work to hip and SI to improve alignment ; standign core activities, hip hinge, squats as improve pop. Train w/log roll, hip hinge, squat and lifting mechanics PNF for core facilitation
--- NOTE | 2023-09-06 10:28 | PT.OTN ---
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 (Rec: 08/09/23 11:51 [facility] [id number]) Current Condition History of Current Condition Onset Date chronic Current Complaints LBP, B post leg numb/tingling, neck pain, B ant knee pain History of Current Condition Pt reports back pain that has been 10 years or longer. She is starting PT as she is thinking breasts heaviness may relate to back pain and considering reduction as she is a 34G. Has not done PT. Neck pain present for 10 years or more. She had neck and back pain in HS. Has hx of c- section about 3 years ago. She gets numb spots/tingling in her shoulder blade area. Gets lat hip pain B and gets tingly -numb pain down post legs. This has been many years now. It stops at the ankle. Sometimes gets weakness in the LB. She has episodes wehre very small movements throw out of her back and she can't walk and has trouble moving. GOes to [facility] 4[facility]5x[facility]week for a few weeks . It is very random. Denies numbness/ tingling down arms. She has B ant knee pain that a couple months ago when started going the gym, ant knee started feeling tight and swollen. She is not currently going any more d/t throwing back out and knee pain. She was doing the fit body boot camp (more high intestity activity (med balls, ropes, wts). She stays at home with her 3 year old and when her back goes out, has difficulty caring for him and picking him up etc. 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 Episodes of back giving out 6 years ago that have inc since her child. notes only incontinence small amounts w/ tramp jumping. No hx of specific injuries. no imagine done. 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 She has had trouble w/back being thrown out w/this. 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 Pt just stopped a couple weeks from breast feeding Treatment Goals Patient/Caregiver Goals care for son w/o back limiting , be able to do work around the house w/o back limitations PT-OP-C Subjective Start: 08/08/23 17:44 Freq: Status: Active Protocol: Document 09/06/23 09:48 SP (Rec: 09/06/23 10:38 SP [id number]) OP-PT Subjective Patient Comments Patient Comments Pt reports back not great, did some line dancing last night on concrete floor and back hurting today. Not doing any exercises laying down, more standing in mirror. Pt reports not sure Ktaping helped but doesn't like feeling of taping on so wants DC use, had ok skin response though. PT-OP-D Balance Start: 08/08/23 17:44 Freq: Status: Active Protocol: Document 08/09/23 09:52 [facility] (Rec: 08/09/23 11:51 [facility] [id number]) Balance Tests Single Limb Standing Single Limb- Right lat shear to R less >30 sec Single Limb- Left lat shear to L >30 sec PT-OP-F Manual Assessment Start: 08/08/23 17:44 Freq: Status: Active Protocol: Document 08/09/23 09:52 [facility] (Rec: 08/09/23 11:51 [facility] [id number]) Manual Assessments Joint Mobility Assessment Joint Mobility Assessment rigid midfoot PT-OP-G Mobility & Gait Start: 08/08/23 17:44 Freq: Status: Active Protocol: Document 08/09/23 09:52 [facility] (Rec: 08/09/23 11:51 [facility] [id number]) OP Gait Assessment Comments Gait Comments L side>R dec wt acceptance; B dec push off PT-OP-J Posture/Palpation/Skin Start: 08/08/23 17:44 Freq: Status: Active Protocol: Document 08/09/23 09:52 [facility] (Rec: 08/09/23 11:51 [facility] [id number]) Posture Evaluation [facility] Postural Classification System [place] Postural Classifications Posterior/Posterior Vertebral Compression Test 0 Elbow Flexion Test 2 Lumbar Protective Mechanism Left AP 0 Lumbar Protective Mechanism Right AP 0 Lumbar Protective Mechanism Left PA 5 Lumbar Protective Mechanism Right PA 5 Comments Posture Comments L>R pronation; R pelvic shear, L rot; R iliac crest, greater trochanter & fibular head higher PT-OP-L Special Tests Start: 08/08/23 17:44 Freq: Status: Active Protocol: Document 08/09/23 09:52 [facility] (Rec: 08/09/23 11:51 [facility] [id number]) Special Tests Lumbar Spine Special Tests Slump Test Results L shoulder blade pain w/RLE; inc tension LLE PT-OP-M Strength Start: 08/08/23 17:44 Freq: Status: Active Protocol: Document 08/09/23 09:52 [facility] (Rec: 08/09/23 11:51 [facility] [id number]) Hip Strength Hip Manual Muscle Testing Right Flexion (L2) 4- Good- Extension (S1) 5 Normal Abduction 5 Normal Adduction 5 Normal External Rotation 4 Good Internal Rotation 5 Normal Left Flexion (L2) 4- Good- Extension (S1) 5 Normal Abduction 5 Normal Adduction 4- Good- External Rotation 4+ Good+ Internal Rotation 5 Normal Comments dec core stability noted w/MMT Knee Strength Knee Manual Muscle Testing Right Flexion (S2) 4 Good Extension (L3) 5 Normal Left Flexion (S2) 4 Good Extension (L3) 5 Normal Ankle/Foot Strength Ankle and Foot Manual Muscle Testing Right Dorsiflexion (L4) 5 Normal Plantarflexion (S1) 4+ Good+ Left Dorsiflexion (L4) 5 Normal Plantarflexion (S1) 4+ Good+ Comments 15 heel raises B PT-OP-Q Treatments Start: 08/08/23 17:44 Freq: Status: Active Protocol: Document 09/06/23 09:48 SP (Rec: 09/06/23 10:38 SP [id number]) Therapeutic Exercises Sidelying Exercises clamshell Sidelying Exercise Name DC Comments causes pain lateral thigh reverse clamshell Sidelying Exercise Name added to HEP- declined HO Side bilateral Resistance AROM Reps/Minutes x10 Comments good form and post hip tiring, pnfree hip abd Sidelying Exercise Name trialed in PT Side bilateral Resistance AROM Reps/Minutes x10 Comments good form and post hip tiring, pnfree Sitting Exercises HS curl Sitting Exercise Name added to HEP- declined HO Side bilateral Resistance Tb #3 anchored in door Reps/Minutes x10 each LE Comments good form, pnfree TS rotation Sitting Exercise Name Reviewed Standing- reviewed declined HO Side bilateral Resistance Tb #2 aqua Reps/Minutes x15 reps each side Comments good postural alignment, pnfree range Standing Exercises great toe abduction Standing Exercise Name reviewed Side bilateral Reps/Minutes x10 Comments improved soft knee flexion neutral and 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 TA fac paloff press Side bilateral Equipment Used lvl 2 (2 bands) Reps/Minutes x15 Comments cued soft knee & TRACTOR CRANE ENGINEER hip hinge Standing Exercise Name w/dowel on back Side bilateral Reps/Minutes 10 Comments pnfree Therapeutic Activity Therapeutic Activity sit to stand Reps/Minutes X3 Comments good hip hinge but when added squat to lift crate, had popping L inferior patella Manual Therapy Treatment Soft Tissue Mobilization glutes Body Location bilateral Mobilization Type Cross-Friction,Rolling Intensity/Depth Moderate Body Position Sidelying Comments STMs and MWM clamshell ( little lat hip discomfort DC) and reverse clam pnfree Joint Mobilizations sacrum Comments L caudal and UPA R FM PT-OP-T Assessment and Plan Start: 08/08/23 17:44 Freq: Status: Active Protocol: Document 09/06/23 09:48 SP (Rec: 09/06/23 10:38 SP [id number]) Physical Therapy Assessment Goals strength Short Term Goal (STG) Pt will be indep w/HEP STG Duration 09/14 Detention Goal (LTG) Pt will show improved core stability by scoring at least 4/5 on EFT and AP w/LPM in order to allow improved stability for daily activities . LTG Duration 10/31 posture Short Term Goal (STG) Pt will demonstrate improved postural alignment by improved VCT to at least 2/5 STG Duration 09/14 Purchasing Administrator Goal (LTG) Pt will demonstrate improved postural alignment by improved VCT to at least 4/5 LTG Duration 10/31 pain Detention Goal (LTG) Pt will report dec instances of LBP/ back giving out and dec overall neck pain and B knee pain w/daily activities including care for son. LTG Duration 11/01/23 Assessment Summary Assessment Pt responded to TA fac with HEP and addition of hip abd and reverse clam and resisted HS curl to support back and soft knee mechanics mobility with pnfree response. Provided TB for carryover HEP strengthening progression, declined HOs, good understanding and form. Cues mainly for soft knee flexion. Physical Therapy Plan Frequency and Duration Frequency of Treatment 1-2x/wk Duration of treatment (weeks) 12 Plan of Care Start Date 08/09/23 Plan of Care End Date 11/01/23 Therapeutic Interventions Therapeutic Interventions Balance Training,Gait Training ,Home Exercise Program,Joint Mobilizations,Manual Therapy, Neuromuscular Re-education, Orthotic/Prosthetic Management ,Patient/Caregiver Education, Self-Care/Home Management,Soft Tissue Mobilization,Taping, Therapeutic Activities, Therapeutic Exercises Modalities Cold Pack/Ice Massage,Electric Stimulation,Hot Packs, Infrared Therapy,Ultrasound Next Visit Focus/Plan Next Note Type Treatment Note Next Visit Plan Assess reponse to added gravity TA hip abd & reverse clamshell, resisted HS curl toHEP. POC PT next tx: cervical ligamentous testing and arterial screening prior to working on neck Manual work to hip and SI to improve alignment ; standign core activities, hip hinge, squats as improve pop. Train w/log roll, hip hinge, squat and lifting mechanics PNF for core facilitation
--- NOTE | 2023-11-28 15:30 | PT.OPDS ---
Current Diagnoses Other chronic pain (09/06/23) Pain in right knee (09/06/23) Pain in left knee (09/06/23) Dorsalgia, unspecified (09/06/23) Abnormal posture (09/06/23) Weakness (09/06/23) Visit Care Team Role Provider Type Amina Lopez DO Family Provider Physician Primary Care Provider Specialty: Medical Address: [address] [place] [address], [address], [place], [address] Email: [email or web address] Chika Simmons DO Attending Provider Physician Referring Provider Specialty: Family Practice Address: [address] [place] [address], [address], [place], [address] Email: [email or web address] Visit Number Visit Number 09/08 Discharge Summary PT-OP-B Current Condition Start: 08/08/23 17:44 Freq: Status: Active Protocol: Document 08/09/23 09:52 [facility] (Rec: 08/09/23 11:51 [facility] [id number]) Current Condition History of Current Condition Onset Date chronic Current Complaints LBP, B post leg numb/tingling, neck pain, B ant knee pain History of Current Condition Pt reports back pain that has been 10 years or longer. She is starting PT as she is thinking breasts heaviness may relate to back pain and considering reduction as she is a 34G. Has not done PT. Neck pain present for 10 years or more. She had neck and back pain in HS. Has hx of c- section about 3 years ago. She gets numb spots/tingling in her shoulder blade area. Gets lat hip pain B and gets tingly -numb pain down post legs. This has been many years now. It stops at the ankle. Sometimes gets weakness in the LB. She has episodes wehre very small movements throw out of her back and she can't walk and has trouble moving. GOes to [facility] for 4-5x/week for a few weeks . It is very random. Denies numbness/ tingling down arms. She has B ant knee pain that a couple months ago when started going the gym, ant knee started feeling tight and swollen. She is not currently going any more d/t throwing back out and knee pain. She was doing the [employer] body boot camp (more high intestity activity (med balls, ropes, wts). She stays at home with her 3 year old and when her back goes out, has difficulty caring for him and picking him up etc. 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 Episodes of back giving out 6 years ago that have inc since her child. notes only incontinence small amounts w/ tramp jumping. No hx of specific injuries. no imagine done. 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 She has had trouble w/back being thrown out w/this. 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 Pt just stopped a couple weeks from breast feeding Treatment Goals Patient/Caregiver Goals care for son w/o back limiting , be able to do work around the house w/o back limitations PT-OP-C Subjective Start: 08/08/23 17:44 Freq: Status: Active Protocol: Document 09/06/23 09:48 [facility] (Rec: 09/06/23 10:38 [facility] [id number]) OP-PT Subjective Patient Comments Patient Comments Pt reports back not great, did some line dancing last night on concrete floor and back hurting today. Not doing any exercises laying down, more standing in mirror. Pt reports not sure Ktaping helped but doesn't like feeling of taping on so wants DC use, had ok skin response though. PT-OP-D Balance Start: 08/08/23 17:44 Freq: Status: Active Protocol: Document 08/09/23 09:52 [facility] (Rec: 08/09/23 11:51 [facility] [id number]) Balance Tests Single Limb Standing Single Limb- Right lat shear to R less >30 sec Single Limb- Left lat shear to L >30 sec PT-OP-F Manual Assessment Start: 08/08/23 17:44 Freq: Status: Active Protocol: Document 08/09/23 09:52 [facility] (Rec: 08/09/23 11:51 [facility] [id number]) Manual Assessments Joint Mobility Assessment Joint Mobility Assessment rigid midfoot PT-OP-G Mobility & Gait Start: 08/08/23 17:44 Freq: Status: Active Protocol: Document 08/09/23 09:52 [facility] (Rec: 08/09/23 11:51 [facility] [id number]) OP Gait Assessment Comments Gait Comments L side>R dec wt acceptance; B dec push off PT-OP-J Posture/Palpation/Skin Start: 08/08/23 17:44 Freq: Status: Active Protocol: Document 08/09/23 09:52 [facility] (Rec: 08/09/23 11:51 [facility] [id number]) Posture Evaluation [facility] Postural Classification System [facility] Postural Classifications Posterior/Posterior Vertical Compression Test 0 Elbow Flexion Test 2 Lumbar Protective Mechanism Left AP 0 Lumbar Protective Mechanism Right AP 0 Lumbar Protective Mechanism Left PA 5 Lumbar Protective Mechanism Right PA 5 Comments Posture Comments L>R pronation; R pelvic shear, L rot; R iliac crest, greater trochanter & fibular head higher PT-OP-L Special Tests Start: 08/08/23 17:44 Freq: Status: Active Protocol: Document 08/09/23 09:52 [facility] (Rec: 08/09/23 11:51 [facility] [id number]) Special Tests Lumbar Spine Special Tests Slump Test Results L shoulder blade pain w/RLE; inc tension LLE PT-OP-M Strength Start: 08/08/23 17:44 Freq: Status: Active Protocol: Document 08/09/23 09:52 [facility] (Rec: 08/09/23 11:51 [facility] [id number]) Hip Strength Hip Manual Muscle Testing Right Flexion (L2) 4- Good- Extension (S1) 5 Normal Abduction 5 Normal Adduction 5 Normal External Rotation 4 Good Internal Rotation 5 Normal Left Flexion (L2) 4- Good- Extension (S1) 5 Normal Abduction 5 Normal Adduction 4- Good- External Rotation 4+ Good+ Internal Rotation 5 Normal Comments dec core stability noted w/MMT Knee Strength Knee Manual Muscle Testing Right Flexion (S2) 4 Good Extension (L3) 5 Normal Left Flexion (S2) 4 Good Extension (L3) 5 Normal Ankle/Foot Strength Ankle and Foot Manual Muscle Testing Right Dorsiflexion (L4) 5 Normal Plantarflexion (S1) 4+ Good+ Left Dorsiflexion (L4) 5 Normal Plantarflexion (S1) 4+ Good+ Comments 15 heel raises B PT-OP-T Assessment and Plan Start: 08/08/23 17:44 Freq: Status: Active Protocol: Document 11/28/23 15:23 [facility] (Rec: 11/28/23 15:30 [facility] [id number]) Physical Therapy Assessment Goals strength Short Term Goal (STG) Pt will be indep w/HEP STG Duration 09/14 Custodial Goal (LTG) Pt will show improved core stability by scoring at least 4/5 on EFT and AP w/LPM in order to allow improved stability for daily activities . LTG Duration 10/31 posture Short Term Goal (STG) Pt will demonstrate improved postural alignment by improved VCT to at least 2/5 STG Duration 09/14 Maintenance Advisor Goal (LTG) Pt will demonstrate improved postural alignment by improved VCT to at least 4/5 LTG Duration 10/31 pain Custodial Goal (LTG) Pt will report dec instances of LBP/ back giving out and dec overall neck pain and B knee pain w/daily activities including care for son. LTG Duration 11/01/23 Assessment Summary Assessment Pt was only seen for 6 visits and cancelled all remaining visits (8) along w/multiple other cancellations. DC d/t pt non compliance and no longer attending PT Physical Therapy Plan Discharge Physical Therapy Discharge Reasons No Longer Attending PT
== END 2023-12-01 08:44 | disposition home or self-care (01) ==
LOC: PHYS 09:45
PROVIDERS: Family Provider Family Medicine; PCP Family Medicine; Referring Provider Family Medicine; Visit Provider Family Medicine
DX: M54.9 Dorsalgia, unspecified (principal); G89.29 Other chronic pain; R53.1 Weakness; R29.3 Abnormal posture; M25.562 Pain in left knee; M25.561 Pain in right knee
CPT/HCPCS: 97110; 97140; 97162; 97535

== ENCOUNTER → 2024-04-26 07:26 | Outpatient (CLI) | payer OTHER, SELFPAY | PROVIDERS: Family Provider Family Medicine; PCP Family Medicine; Visit Provider Nurse Practitioner Family | DX: J02.9 Acute pharyngitis, unspecified (principal) | CPT/HCPCS: 87070 ==

== ENCOUNTER → 2024-05-19 18:40 | Outpatient (CLI) | payer OTHER, SELFPAY ==
[2024-05-19 19:26] LABS: Influenza A - CEPHEID Flu A NEGATIVE (NEGATIVE); Influenza B - CEPHEID Flu B POSITIVE (NEGATIVE); Respiratory Syncytial Virus Negative (Negative)
[2024-05-19 19:28] LABS: COVID-19 CEPHEID 4-PLEX PCR Negative (Negative)
== END ==
PROVIDERS: Family Provider Family Medicine; PCP Family Medicine; Visit Provider Registered Nurse
DX: R05.1 Acute cough (principal)
CPT/HCPCS: 0241U

== ENCOUNTER → 2024-08-07 14:18 | Outpatient (CLI) | payer OTHER, SELFPAY | PROVIDERS: Family Provider Family Medicine; PCP Family Medicine; Visit Provider Family Medicine | DX: N89.8 Other specified noninflammatory disorders of vagina (principal) | CPT/HCPCS: 87210; 87480; 87491; 87510; 87591; 87798; 87801 ==

== ENCOUNTER → 2024-09-17 11:10 | Outpatient (CLI) | payer OTHER, SELFPAY | LOC: LAB 11:10 | PROVIDERS: Family Provider Family Medicine; PCP Family Medicine; Visit Provider Physician Assistant | DX: N89.8 Other specified noninflammatory disorders of vagina (principal) | CPT/HCPCS: 87210 ==

== ENCOUNTER → 2024-09-26 14:11 | Outpatient (CLI) | payer OTHER, SELFPAY ==
[2024-09-26 18:48] LABS: Urine Chlamydia NOT DETECTED; Urine N gonorrhoeae NOT DETECTED
== END ==
LOC: LAB 14:12
PROVIDERS: PCP Family Medicine; Visit Provider Physician Assistant
DX: N89.8 Other specified noninflammatory disorders of vagina (principal)
CPT/HCPCS: 87210; 87491; 87591

== ENCOUNTER → 2024-10-20 12:26 | Outpatient (CLI) | payer OTHER, SELFPAY ==
[2024-10-20 14:19] LABS: Urine N gonorrhoeae NOT DETECTED
[2024-10-20 14:24] LABS: Urine Chlamydia NOT DETECTED
[2024-10-20 16:26] LABS: HIV 1 & 2 Ab/Ag 4th Gen Combo NEGATIVE (NEGATIVE); Hep C Virus Ab w/Reflex Quant NEGATIVE s/c (NEGATIVE)
== END ==
PROVIDERS: PCP Family Medicine; Referring Provider Family Medicine; Visit Provider Chiropractor
DX: Z11.3 Encounter for screening for infections with a predominantly sexual mode of transmission (principal); Z72.51 High risk heterosexual behavior
CPT/HCPCS: 36415; 86592; 86803; 87389; 87491; 87591